=== PATIENT | female | born 1995 | race African-American/Black ===

== ENCOUNTER 2017-02-18 16:25 | Emergency (ER) | payer OTHER ==
[~2017-02-18] VITALS: Ht 167.6 cm; Wt 59.4 kg
[~2017-02-18 16:25] MED LIST: IBUPROFEN 800800 M1 PO
[2017-02-18] MEDS ORDERED: PERCOCET 10-321 EACH PO (16:30)
== END 2017-02-18 17:37 | disposition home or self-care (01) ==
LOC: ER 16:25
DX: G89.4 Chronic pain syndrome (principal); E87.1 Hypo-osmolality and hyponatremia; Z88.6 Allergy status to analgesic agent

== ENCOUNTER 2019-02-15 10:24 | Emergency (ER) | payer OTHER ==
[~2019-02-15] VITALS: Ht 160 cm; Wt 60.3 kg
[~2019-02-15 10:24] MED LIST changes: +PERCOCET 10-321 EACH PO
[2019-02-15 13:07] LABS: HEMATOCRIT 24.5 % (37.0-47.0); HEMOGLOBIN 8.4 gm/dL (12.0-15.0); MCH 29.5 pg (26.0-34.0); MCHC 34.2 g/dL (28.0-37.0); MCV 86.4 fL (80.0-100.0); RBC 2.84 mil/uL (4.20-5.00); RDW 17.8 % (10.5-14.5); WBC 12.7 thou/uL (4.0-11.0)
[2019-02-15 13:09] LABS: ABSOLUTE RETIC COUNT 0.1936 10^6/uL; OBSERVED RETIC COUNT 6.81 % (0.6-2.6)
[2019-02-15 13:15] LABS: CALCIUM 8.8 mg/dL (8.5-10.1); CREATININE 0.5 mg/dL (0.6-1.0); POTASSIUM 3.7 mmol/L (3.5-5.1)
[2019-02-15] MEDS ORDERED: TAMIFLU75 MG PO ×3 (15:37→16:29)
[2019-02-15 16:35] VITALS: BP 109/55
[2019-02-16] MEDS ORDERED: SIKLOS100 MG PO (16:02)
[2019-02-16] MEDS ORDERED: FOLIC ACID1 MG PO (16:03)
[2019-02-16] MEDS ORDERED: PERCOCET 5-3251 EACH PO (22:30)
[2019-02-16] MEDS ORDERED: PERCOCET 10-321 EAC1 PO (23:07)
== END 2019-02-15 16:35 | disposition home or self-care (01) ==
LOC: ER 10:24
PROVIDERS: Emergency Medicine
DX: D57.00 Hb-SS disease with crisis, unspecified (principal); J10.1 Influenza due to other identified influenza virus with other respiratory manifestations; Z88.6 Allergy status to analgesic agent

== ENCOUNTER 2019-02-16 15:58 | Emergency (ER) | payer OTHER ==
[~2019-02-16] VITALS: Ht 160 cm; Wt 60.3 kg
[~2019-02-16 15:58] MED LIST changes: +TAMIFLU75 MG PO
[2019-02-16] MEDS ORDERED: SIKLOS100 MG PO (16:02)
[2019-02-16] MEDS ORDERED: FOLIC ACID1 MG PO (16:03)
[2019-02-16] MEDS ORDERED: PERCOCET 5-3251 EACH PO (22:30)
[2019-02-16 23:00] VITALS: BP 117/77
[2019-02-16] MEDS ORDERED: PERCOCET 10-321 EAC1 PO (23:07)
== END 2019-02-16 22:55 | disposition home or self-care (01) ==
LOC: ER 15:58
DX: D57.00 Hb-SS disease with crisis, unspecified (principal); J10.1 Influenza due to other identified influenza virus with other respiratory manifestations; Z88.6 Allergy status to analgesic agent

== ENCOUNTER 2019-02-18 19:58 | Inpatient (IN) | payer OTHER ==
[~2019-02-18] VITALS: Ht 160 cm; Wt 59.0 kg
[~2019-02-18 19:58] MED LIST changes: +FOLIC ACID1 MG PO; +PERCOCET 10-321 EAC1 PO; +PERCOCET 5-3251 EACH PO; +SIKLOS100 MG PO
[2019-02-18 20:00] VITALS: BP 129/83
[2019-02-18 21:40] LABS: HEMATOCRIT 21.1 % (37.0-47.0); HEMOGLOBIN 7.7 gm/dL (12.0-15.0); MCH 29.4 pg (26.0-34.0); MCHC 36.5 g/dL (28.0-37.0); MCV 80.5 fL (80.0-100.0); PLATELET COUNT 356 thou/uL (150-400); RBC 2.62 mil/uL (4.20-5.00)
[2019-02-18 21:41] LABS: ABSOLUTE RETIC COUNT 0.1752 10^6/uL; OBSERVED RETIC COUNT 6.68 % (0.6-2.6)
[2019-02-18 21:45] LABS: CALCIUM 9.1 mg/dL (8.5-10.1); CREATININE 0.7 mg/dL (0.6-1.0); POTASSIUM 3.5 mmol/L (3.5-5.1)
[2019-02-18 21:51] LABS: ALBUMIN 4.1 g/dL (3.4-5.0); TOTAL BILIRUBIN 4.4 mg/dL (<0.1-1.0); TOTAL PROTEIN 7.5 g/dL (6.4-8.2)
[2019-02-18 22:36] LABS: HCO3 26.9 mmol/L (22.0-26.0); PCO2 43.8 mmHg (35.0-45.0); PO2 138.8 mmHg (80.0-100.0); pH 7.406 (7.360-7.450); sO2 98.8 % (92.0-98.0)
[2019-02-18 22:45] LABS: ABSOLUTE NEUTROPHILS 3.2 thou/uL (1.4-8.2); NUCLEATED RBCS 6 /100WBC
[2019-02-18 22:46] LABS: ANISOCYTOSIS 2+; PLATELET ESTIMATE NORMAL; POIKILOCYTOSIS 2+; POLYCHROMASIA 1+; SCHISTOCYTES 1+; TARGET CELLS 1+
[2019-02-18 23:47] VITALS: BP 112/73
[2019-02-18 23:56] VITALS: BP 111/65
[2019-02-19 00:27] VITALS: BP 1128/65
[2019-02-19 03:24] VITALS: BP 129/78
[2019-02-19 08:20] VITALS: BP 112/49
--- NOTE | 2019-02-19 08:34 | EKG ---
[address] [email or web address] [address] ELECTROCARDIOGRAM REPORT Name: RULA TAVAREZ Room #: 206-P ADM IN M.R.#: [id number] Admission: 02/18/19 Attend Phys: Shaquille Ray MD Discharge: Date of : [birth year] Report #: [id number] THIS REPORT FOR: //name// [facility] ED Test Date: 2019-02-18 Test Time: 20:10:23 Pat Name: RULA TAVAREZ Department: Room: [facility] Gender: F Kit Planner: INDRA : 1995 Requested By: Ashlee Serrano Order Number: [id number] MD: Clarence Hernandez Measurements Intervals [place] Rate: 99 P: 81 [place]: 191 QRS: 33 QRSD: 80 T: 67 QT: 330 QTc: 424 Interpretive Statements Sinus rhythm LVH by voltage No previous ECG available for comparison Electronically Signed On 02-19-2019 8:34:27 TRANSIT PLANNING MANAGER by Clarence Hernandez [email or web address] <ELECTRONICALLY SIGNED> By: Clarence Hernandez MD, [facility] 02/19/19 0834 09 09 Clarence Hernandez MD, FACC /EPI
--- NOTE | 2019-02-19 11:09 | NUR ---
ASSUMED CARE AT 0700, SHIFT ASSESMENT DONE, MEDS GIVEN, VSS. DENIES NAUSEA, VOMITING. NSR ON TELE, ON 3L NC. REPORTED GENERALIZED PAIN, PRN PAIN MEDS GIVEN. ON DROPLET PRECAUTIONS, WILL CONTINUE TO ASSESS AND ASSIST WITH ADLs NEEDED.
[2019-02-19 14:08] VITALS: BP 120/60
--- NOTE | 2019-02-19 15:55 | NUR ---
PT ARRIVED TO UNIT TRANSFERRED FROM BY UNIT STAFF. REMAINS ON 3LNC. REPORTS PAIN PARTIALLY MANAGED WITH MEDS ORDERED. PT UP AD IMELDA WITH STEADY BALANCED GAIT. ISOLATION PRECAUTIONS MAINTAINED.
[2019-02-19 16:10] VITALS: BP 139/63
[2019-02-19 19:15] VITALS: BP 112/74
--- NOTE | 2019-02-20 06:00 | NUR ---
Assumed pt care @191. pt a&ox4. adlib room. pain has been constant all night at an 8/10 with current pain management regimen. pt showered last night. droplet prec in place. pt on 3L nc and that that baseline prn. no s/s of acute distress. will cont to monitor
[2019-02-20 07:30] VITALS: BP 109/63
--- NOTE | 2019-02-20 12:33 | NUR ---
Chart reviewed and case discussed with the care team. Pt up ad eleanor in her room. She has been struggling this am with coordinating transport for her child after school. She relies on her mother most of the time. She [place] medicaid in place for f/u care and scripts. She [facility], Dr. Molina for her pcp. She is being treated for flu and sickle cell crisis. No cm needs identified at this time. Will follow along should dc needs arise. Possible dc home tomorrow.
[2019-02-20 15:45] VITALS: BP 116/71
--- NOTE | 2019-02-20 19:45 | NUR ---
Assumed patient care at 0715. Vital signs have been stable. Patient vomited x's 2 during day shift. Patient continues on Droplet Precautions for "Flu." she continues on O2 at 3Liters per nasal cannula prn. Patient refused her Miralax this am, stating "I don't need it." IV in left AC infiltrated. New IV placed in right forearm. NS running at 125mLs per hour. Patient has requested and received Zofran and Hydromorphone IV for generalized pain and nausea. She reports minimal response to Hydromorphone but, complete relief from the Zofran. Report given to on-coming RN.
--- NOTE | 2019-02-20 22:15 | NUR ---
ASSUMED CARE AROUND 191. ISO FOR FLU, AXOX4. CALLS APPROPRIATELY. NO S/S ACUTE DISTRESS NOTED OR REPORTED AT THIS TIME. CARE TRANSFERRED TO INCOMING RN AT THIS TIME.
[2019-02-21 07:50] VITALS: BP 122/67
[2019-02-21 12:02] VITALS: BP 104/60
[2019-02-21 13:08] VITALS: BP 104/60
--- NOTE | 2019-02-21 13:18 | NUR ---
Pt dcing home today. She confirms that she has home o2/portable system in place for when she needs it. Pt up ad leeanor. Pt encouraged to call her clinic to setup a f/u appt.
[2019-02-21 16:30] VITALS: BP 112/79
--- NOTE | 2019-02-21 18:26 | NUR ---
Assumed patient care at 0715. Vital signs have been stable. She vomited x's 1 this am. Patient continues on Oxygen at 3 Liters per nasal cannula. Patient continues to rate her Sickle Cell pain at a "level eight." Dr Armenta wrote Discharge Orders early this afternoon. Patient did not want to go home. Patient did verbalize an understanding to all Discharge Orders and signed paperwork. Patient didn't leave the unit until 1730. She left with all of her belongings.
== END 2019-02-21 17:30 | disposition home or self-care (01) | DRG 811 ==
LOC: ER 19:58 → 2N 23:24 → EROBS 23:24 → 2N 02-19 00:09 → 4W 02-19 13:45 → ENTRNSPT 02-21 17:29 → 4W 02-21 17:30
PROVIDERS: Physician Assistant; ADMIT Hospitalist
DX: D57.00 Hb-SS disease with crisis, unspecified (principal); J96.21 Acute and chronic respiratory failure with hypoxia; J11.1 Influenza due to unidentified influenza virus with other respiratory manifestations; Z88.6 Allergy status to analgesic agent; G89.29 Other chronic pain; Z79.899 Other long term (current) drug therapy
CPT/HCPCS: 10047

== ENCOUNTER 2019-03-06 09:49 | Emergency (ER) | payer OTHER ==
[~2019-03-06] VITALS: Ht 160 cm; Wt 58.1 kg
[2019-03-06 10:45] LABS: ABSOLUTE RETIC COUNT 0.179 10^6/uL; HEMATOCRIT 25.2 % (37.0-47.0); MCH 31.1 pg (26.0-34.0); MCHC 35.5 g/dL (28.0-37.0); MCV 87.6 fL (80.0-100.0); OBSERVED RETIC COUNT 6.21 % (0.6-2.6); PLATELET COUNT 752 thou/uL (150-400); RBC 2.88 mil/uL (4.20-5.00); WBC 5.5 thou/uL (4.0-11.0)
[2019-03-06 11:19] LABS: ABSOLUTE NEUTROPHILS 1.6 thou/uL (1.4-8.2); NUCLEATED RBCS 7 /100WBC
[2019-03-06 11:20] LABS: ANISOCYTOSIS 2+; ATYPICAL LYMPHS 1 %
[2019-03-06 11:21] LABS: TARGET CELLS FEW
[2019-03-06 16:48] VITALS: BP 117/67
== END 2019-03-06 16:49 | disposition home or self-care (01) ==
LOC: ER 09:49
PROVIDERS: Emergency Medicine
DX: D57.00 Hb-SS disease with crisis, unspecified (principal); Z88.6 Allergy status to analgesic agent

== ENCOUNTER 2019-03-13 18:24 | Emergency (ER) | payer OTHER ==
[~2019-03-13] VITALS: Ht 160 cm; Wt 58.5 kg
[2019-03-13] MEDS ORDERED: PERCOCET 10-321 EAC1 PO (21:10)
[2019-03-14] MEDS ORDERED: PERCOCET 10-321 EAC1 PO (01:16)
[2019-03-14 01:24] VITALS: BP 124/72
== END 2019-03-14 01:25 | disposition home or self-care (01) ==
LOC: ER 18:24
DX: D57.1 Sickle-cell disease without crisis (principal)

== ENCOUNTER 2019-03-25 02:25 | Emergency (ER) | payer OTHER ==
[~2019-03-25] VITALS: Ht 160 cm; Wt 59.9 kg
[2019-03-25] MEDS ORDERED: PERCOCET 10-321 EACH PO (02:58)
[2019-03-25 03:20] VITALS: BP 128/73
== END 2019-03-25 03:12 | disposition home or self-care (01) ==
LOC: ER 02:25
DX: D57.1 Sickle-cell disease without crisis (principal); G89.29 Other chronic pain

== ENCOUNTER 2019-04-09 01:57 | Emergency (ER) | payer OTHER ==
[~2019-04-09] VITALS: Ht 160 cm; Wt 60.3 kg
[2019-04-09 04:51] VITALS: BP 112/53
== END 2019-04-09 06:12 | disposition home or self-care (01) ==
LOC: ER 01:57
DX: D57.1 Sickle-cell disease without crisis (principal); Z91.09 Other allergy status, other than to drugs and biological substances

== ENCOUNTER 2019-04-11 00:09 | Emergency (ER) | payer OTHER ==
[~2019-04-11] VITALS: Ht 160 cm; Wt 60.3 kg
[2019-04-11 03:53] VITALS: BP 120/88
[2019-04-11] MEDS ORDERED: PERCOCET 10-321 EACH PO (04:04)
== END 2019-04-11 03:57 | disposition home or self-care (01) ==
LOC: ER 00:09
DX: D57.00 Hb-SS disease with crisis, unspecified (principal); R06.02 Shortness of breath; Z79.899 Other long term (current) drug therapy; Z88.6 Allergy status to analgesic agent

== ENCOUNTER 2019-04-15 01:27 | Emergency (ER) | payer OTHER ==
[~2019-04-15] VITALS: Ht 160 cm; Wt 60.3 kg
[2019-04-15 02:32] LABS: HEMATOCRIT 22.7 % (37.0-47.0); HEMOGLOBIN 8.3 gm/dL (12.0-15.0); MCH 31.4 pg (26.0-34.0); MCHC 36.4 g/dL (28.0-37.0); MCV 86.2 fL (80.0-100.0); PLATELET COUNT 493 thou/uL (150-400); RBC 2.64 mil/uL (4.20-5.00); RDW 24.1 % (10.5-14.5); WBC 7.3 thou/uL (4.0-11.0)
[2019-04-15 02:34] LABS: CALCIUM 9.1 mg/dL (8.5-10.1); CREATININE 0.4 mg/dL (0.6-1.0); POTASSIUM 5.1 mmol/L (3.5-5.1)
[2019-04-15 02:37] LABS: ABSOLUTE RETIC COUNT 0.3144 10^6/uL; OBSERVED RETIC COUNT 11.58 % (0.6-2.6)
[2019-04-15] MEDS ORDERED: KEFLEX500 M1 PO (03:08)
[2019-04-15 03:15] LABS: ABSOLUTE NEUTROPHILS 2.9 thou/uL (1.4-8.2); ATYPICAL LYMPHS 1 %; CORRECTED WBC 6.5 thou/uL (4.0-11.0); NUCLEATED RBCS 13 /100WBC
[2019-04-15 03:16] VITALS: BP 117/67
[2019-04-15 03:16] LABS: ANISOCYTOSIS 4+; POLYCHROMASIA 2+
[2019-04-15 03:17] LABS: LARGE PLATELETS SEVERAL
== END 2019-04-15 03:30 | disposition home or self-care (01) ==
LOC: ER 01:27
PROVIDERS: Emergency Medicine
DX: M79.662 Pain in left lower leg (principal); M25.552 Pain in left hip; Z79.899 Other long term (current) drug therapy; X58.XXXA Exposure to other specified factors, initial encounter; Y93.01 Activity, walking, marching and hiking; Y92.89 Other specified places as the place of occurrence of the external cause; Y99.8 Other external cause status

== ENCOUNTER 2019-04-17 00:41 | Emergency (ER) | payer OTHER ==
[~2019-04-17] VITALS: Ht 160 cm; Wt 60.3 kg
[~2019-04-17 00:41] MED LIST changes: +KEFLEX500 M1 PO
[2019-04-17 02:46] VITALS: BP 108/64
--- NOTE | 2019-04-18 12:45 | EKG ---
[facility] [place] [address] ELECTROCARDIOGRAM REPORT Name: RULA TAVAREZ Room #: DEP [facility]#: [id number] Admission: 04/17/19 Attend Phys: Discharge: 04/17/19 Date of : [birth year] Report #: [id number] THIS REPORT FOR: cc: NO FAMILY PHYSICIAN or PCP NO FAMILY PHYSICIAN or PCP Kt Hernandez MD ~ THIS REPORT FOR: //name// [facility] ED Test Date: 2019-04-17 Test Time: 00:54:28 Pat Name: RULA TAVAREZ Department: Room: Gender: Mold Holder: : 1995 Requested By: Order Number: [id number] MD: Kt Hernandez Measurements Intervals [place] Rate: 88 P: 51 GA: 185 QRS: 25 QRSD: 81 T: 18 QT: 355 QTc: 430 Interpretive Statements Sinus rhythm Nonspecific T abnormalities, anterior leads No previous ECGs available for comparison Electronically Signed On 04-18-2019 12:44:28 CDT by Kt Hernandez [email or web address] <ELECTRONICALLY SIGNED> By: Kt Hernandez MD 04/18/19 1244 Kt Hernandez MD /SHAREE
== END 2019-04-17 02:47 | disposition home or self-care (01) ==
LOC: ER 00:41
DX: D57.00 Hb-SS disease with crisis, unspecified (principal); R07.9 Chest pain, unspecified; R06.02 Shortness of breath

== ENCOUNTER 2019-04-25 09:54 | Emergency (ER) | payer OTHER ==
[~2019-04-25] VITALS: Ht 160 cm; Wt 58.5 kg
[2019-04-25 11:00] LABS: CALCIUM 9.3 mg/dL (8.5-10.1); CREATININE 0.5 mg/dL (0.6-1.0); POTASSIUM 3.6 mmol/L (3.5-5.1)
[2019-04-25] MEDS ORDERED: DROXIA200 MG PO (11:00)
[2019-04-25] MEDS ORDERED: FOLIC ACID0.8 M1 PO (11:01)
[2019-04-25 11:06] LABS: ALBUMIN 4.4 g/dL (3.4-5.0); TOTAL BILIRUBIN 3.1 mg/dL (<0.1-1.0); TOTAL PROTEIN 7.9 g/dL (6.4-8.2)
[2019-04-25 11:16] LABS: ABSOLUTE RETIC COUNT 0.2588 10^6/uL; BASOPHILS 1.9 % (0.0-2.0); EOSINOPHILS 4.6 % (0.0-3.0); HEMATOCRIT 27.8 % (37.0-47.0); HEMOGLOBIN 9.7 gm/dL (12.0-15.0); LYMPHOCYTES 46.4 % (24.0-44.0); MCH 31.1 pg (26.0-34.0); MCHC 34.9 g/dL (28.0-37.0); MCV 88.9 fL (80.0-100.0); MONOCYTES 11.6 % (1.0-8.0); OBSERVED RETIC COUNT 8.29 % (0.6-2.6); PLATELET COUNT 646 thou/uL (150-400); POLYS 35.5 % (36.0-66.0); RBC 3.12 mil/uL (4.20-5.00); RDW 20.8 % (10.5-14.5); WBC 8.4 thou/uL (4.0-11.0)
[2019-04-25 11:42] LABS: ANISOCYTOSIS 2+
[2019-04-25 11:44] LABS: POLYCHROMASIA SLIGHT
[2019-04-25] MEDS ORDERED: NORCO 5-325 TA1 EAC1 PO (12:42)
[2019-04-25 13:21] VITALS: BP 116/68
--- NOTE | 2019-04-26 08:14 | EKG ---
[facility] [place] [address] ELECTROCARDIOGRAM REPORT Name: RULA TAVAREZ Room #: DEP [facility]#: [id number] Admission: 04/25/19 Attend Phys: Discharge: 04/25/19 Date of : [birth year] Report #: [id number] THIS REPORT FOR: cc: FAM - Family physician unknown FAM - Family physician unknown Clarence Hernandez MD [facility] ~ THIS REPORT FOR: //name// [facility] ED Test Date: 2019-04-25 Test Time: 10:40:28 Pat Name: RULA TAVAREZ Department: Room: Gender: F Sephora Operations Consultant: celia : 1995 Requested By: Aris Santana Order Number: [id number] MD: Clarence Hernandez Measurements Intervals [place] Rate: 82 P: 52 VA: 186 QRS: 16 QRSD: 81 T: 28 QT: 366 QTc: 428 Interpretive Statements Sinus rhythm Borderline T abnormalities, anterior leads Compared to ECG 04/17/2019 00:54:28 No significant changes Electronically Signed On 04-26-2019 8:13:37 CDT by Clarence Hernandez [email or web address] <ELECTRONICALLY SIGNED> By: Clarence Hernandez MD, FACC 04/26/19 0813 1040 1040 Clarence Hernandez MD, [facility] /EPI
== END 2019-04-25 13:21 | disposition home or self-care (01) ==
LOC: ER 09:54
PROVIDERS: Emergency Medicine
DX: D57.00 Hb-SS disease with crisis, unspecified (principal); Z88.6 Allergy status to analgesic agent

== ENCOUNTER 2019-04-28 20:55 | Emergency (ER) | payer OTHER ==
[~2019-04-28] VITALS: Ht 160 cm; Wt 58.5 kg
[~2019-04-28 20:55] MED LIST changes: +DROXIA200 MG PO; +FOLIC ACID0.8 M1 PO; +NORCO 5-325 TA1 EAC1 PO
[2019-04-28 21:58] LABS: ABSOLUTE RETIC COUNT 0.2214 10^6/uL; HEMATOCRIT 25.5 % (37.0-47.0); HEMOGLOBIN 9.3 gm/dL (12.0-15.0); MCH 32.1 pg (26.0-34.0); MCHC 36.4 g/dL (28.0-37.0); MCV 88.1 fL (80.0-100.0); OBSERVED RETIC COUNT 7.64 % (0.6-2.6); PLATELET COUNT 619 thou/uL (150-400); RDW 20.7 % (10.5-14.5); WBC 9.3 thou/uL (4.0-11.0)
[2019-04-28 22:06] LABS: CALCIUM 9.6 mg/dL (8.5-10.1); CREATININE 0.5 mg/dL (0.6-1.0)
[2019-04-28 22:14] LABS: ALBUMIN 4.3 g/dL (3.4-5.0); TOTAL BILIRUBIN 3.2 mg/dL (<0.1-1.0); TOTAL PROTEIN 7.4 g/dL (6.4-8.2)
[2019-04-28 22:26] LABS: ABSOLUTE NEUTROPHILS 5.1 thou/uL (1.4-8.2); ANISOCYTOSIS 3+; LARGE PLATELETS OCCASIONAL
[2019-04-28 22:27] LABS: HYPOCHROMASIA 2+; POLYCHROMASIA OCCASIONAL; TARGET CELLS OCCASIONAL
[2019-04-28 23:20] VITALS: BP 112/73
[2019-04-28] MEDS ORDERED: PERCOCET 10-321 EAC1 PO (23:56)
== END 2019-04-29 00:20 | disposition home or self-care (01) ==
LOC: ER 20:55
PROVIDERS: Emergency Medicine
DX: D57.00 Hb-SS disease with crisis, unspecified (principal); M25.511 Pain in right shoulder; R07.9 Chest pain, unspecified; M54.5 Low back pain; Z88.6 Allergy status to analgesic agent

== ENCOUNTER 2019-05-04 19:14 | Emergency (ER) | payer OTHER ==
[~2019-05-04] VITALS: Ht 160 cm; Wt 58.5 kg
[2019-05-04 21:20] VITALS: BP 130/86
== END 2019-05-04 21:21 | disposition home or self-care (01) ==
LOC: ER 19:14
DX: D57.00 Hb-SS disease with crisis, unspecified (principal); G89.29 Other chronic pain; Z88.6 Allergy status to analgesic agent

== ENCOUNTER 2019-05-12 19:04 | Emergency (ER) | payer OTHER ==
[~2019-05-12] VITALS: Ht 160 cm; Wt 58.5 kg
[2019-05-12] MEDS ORDERED: ZOFRAN ODT4 MG PO (20:14)
[2019-05-12 20:31] VITALS: BP 116/70
== END 2019-05-12 20:33 | disposition home or self-care (01) ==
LOC: ER 19:04
DX: R11.2 Nausea with vomiting, unspecified (principal); M25.562 Pain in left knee; M25.572 Pain in left ankle and joints of left foot; Z79.899 Other long term (current) drug therapy

== ENCOUNTER 2019-05-27 21:17 | Emergency (ER) | payer OTHER ==
[~2019-05-27] VITALS: Ht 160 cm; Wt 60.3 kg
[~2019-05-27 21:17] MED LIST changes: +ZOFRAN ODT4 MG PO
[2019-05-27] MEDS ORDERED: PERCOCET 10-321 EAC1 PO (21:23)
[2019-05-27 22:18] LABS: ABSOLUTE RETIC COUNT 0.1759 10^6/uL; OBSERVED RETIC COUNT 5.96 % (0.6-2.6)
[2019-05-27 22:21] LABS: HEMATOCRIT 26.3 % (37.0-47.0); HEMOGLOBIN 9.4 gm/dL (12.0-15.0); MCH 31.5 pg (26.0-34.0); MCHC 35.9 g/dL (28.0-37.0); MCV 87.9 fL (80.0-100.0); PLATELET COUNT 568 thou/uL (150-400); RBC 2.99 mil/uL (4.20-5.00); RDW 18.8 % (10.5-14.5); WBC 7.6 thou/uL (4.0-11.0)
[2019-05-27 22:28] LABS: CALCIUM 8.8 mg/dL (8.5-10.1); CREATININE 0.6 mg/dL (0.6-1.0); POTASSIUM 3.6 mmol/L (3.5-5.1)
[2019-05-27 22:32] LABS: ALBUMIN 4.3 g/dL (3.4-5.0); TOTAL BILIRUBIN 3.6 mg/dL (<0.1-1.0); TOTAL PROTEIN 7.4 g/dL (6.4-8.2)
[2019-05-27 22:44] LABS: ABSOLUTE NEUTROPHILS 2.6 thou/uL (1.4-8.2)
[2019-05-27 22:45] LABS: LARGE PLATELETS OCCASIONAL
[2019-05-27 22:46] VITALS: BP 119/77
[2019-05-27 22:46] LABS: ANISOCYTOSIS 2+; POLYCHROMASIA OCCASIONAL; TARGET CELLS FEW
[2019-05-27] MEDS ORDERED: PERCOCET 5-3251 EACH PO (22:51)
== END 2019-05-27 23:02 | disposition home or self-care (01) ==
LOC: ER 21:17
PROVIDERS: Emergency Medicine
DX: D57.1 Sickle-cell disease without crisis (principal); M25.511 Pain in right shoulder; M25.551 Pain in right hip; M25.552 Pain in left hip; Z79.899 Other long term (current) drug therapy; Z88.6 Allergy status to analgesic agent

== ENCOUNTER 2019-06-10 23:02 | Emergency (ER) | payer OTHER ==
[~2019-06-10] VITALS: Ht 160 cm; Wt 59.0 kg
[2019-06-10 23:59] LABS: HEMOGLOBIN 10.1 gm/dL (12.0-15.0); MCHC 36.1 g/dL (28.0-37.0); WBC 6.1 thou/uL (4.0-11.0)
[2019-06-11 00:01] LABS: HEMATOCRIT 27.9 % (37.0-47.0); MCH 31.8 pg (26.0-34.0); MCV 88.1 fL (80.0-100.0); PLATELET COUNT 532 thou/uL (150-400); RBC 3.16 mil/uL (4.20-5.00); RDW 18.3 % (10.5-14.5)
[2019-06-11 00:03] LABS: CALCIUM 9.2 mg/dL (8.5-10.1); CREATININE 0.7 mg/dL (0.6-1.0); POTASSIUM 3.5 mmol/L (3.5-5.1)
[2019-06-11 00:09] LABS: ALBUMIN 5.1 g/dL (3.4-5.0); TOTAL BILIRUBIN 4.4 mg/dL (<0.1-1.0); TOTAL PROTEIN 8.1 g/dL (6.4-8.2)
[2019-06-11 01:10] LABS: ANISOCYTOSIS 2+; NUCLEATED RBCS 1 /100WBC; POIKILOCYTOSIS 2+
[2019-06-11 01:11] LABS: BURR CELLS 1+; LARGE PLATELETS FEW; PLATELET ESTIMATE INCREASED; SCHISTOCYTES 1+
[2019-06-11 02:44] VITALS: BP 107/72
--- NOTE | 2019-06-11 12:56 | EKG ---
[facility] [place] [address] ELECTROCARDIOGRAM REPORT Name: RULA TAVAREZ Room #: DEP [facility]#: [id number] Admission: 06/10/19 Attend Phys: Discharge: 06/11/19 Date of : [birth year] Report #: [id number] THIS REPORT FOR: cc: FILI Lam family physician/PCP FILI - Carole family physician/PCP Clarence Hernandez MD [facility] THIS REPORT FOR: //name// [facility] ED Test Date: 2019-06-10 Test Time: 23:27:27 Pat Name: RULA TAVAREZ Department: Room: Gender: F Plastics Factory Worker: : 1995 Requested By: Aris Caban Order Number: [id number] MD: Clarence Hernandez Measurements Intervals [place] Rate: 83 P: 47 DC: 190 QRS: 29 QRSD: 85 T: 43 QT: 375 QTc: 441 Interpretive Statements Sinus rhythm Early R wave progression Compared to ECG 04/25/2019 10:40:28 No significant change was found Electronically Signed On 06-11-2019 12:54:47 CDT by Clarence Hernandez [email or web address] <ELECTRONICALLY SIGNED> By: Clarence Hernandez MD, [facility] 06/11/19 1254 2327 2327 Clarence Hernandez MD, [facility] /EPI
[2019-06-12] MEDS ORDERED: PERCOCET 10-321 EACH PO (05:12)
== END 2019-06-11 02:44 | disposition home or self-care (01) ==
LOC: ER 23:02
PROVIDERS: Emergency Medicine
DX: R07.9 Chest pain, unspecified (principal); M54.9 Dorsalgia, unspecified; D57.00 Hb-SS disease with crisis, unspecified; Z79.899 Other long term (current) drug therapy; Z88.6 Allergy status to analgesic agent

== ENCOUNTER 2019-06-12 03:56 | Emergency (ER) | payer OTHER ==
[~2019-06-12] VITALS: Ht 160 cm; Wt 59.0 kg
[2019-06-12 05:11] VITALS: BP 113/57
[2019-06-12] MEDS ORDERED: PERCOCET 10-321 EACH PO (05:12)
== END 2019-06-12 05:27 | disposition home or self-care (01) ==
LOC: ER 03:56
DX: D57.00 Hb-SS disease with crisis, unspecified (principal); R07.89 Other chest pain; Z88.5 Allergy status to narcotic agent; Z88.6 Allergy status to analgesic agent

== ENCOUNTER 2019-06-16 08:06 | Emergency (ER) | payer OTHER ==
[~2019-06-16] VITALS: Ht 157.5 cm; Wt 49.0 kg
[2019-06-16 09:19] LABS: HEMATOCRIT 23.5 % (37.0-47.0); HEMOGLOBIN 8.5 gm/dL (12.0-15.0); MCH 31.7 pg (26.0-34.0); MCV 88.1 fL (80.0-100.0); PLATELET COUNT 534 thou/uL (150-400); RBC 2.66 mil/uL (4.20-5.00); RDW 16.7 % (10.5-14.5); WBC 5.2 thou/uL (4.0-11.0)
[2019-06-16 09:31] LABS: ANION GAP 9 mmol/L (7-16); BUN 5 mg/dL (7-18); CHLORIDE 104 mmol/L (98-107); CO2 26 mmol/L (21-32); CREATININE 0.5 mg/dL (0.6-1.0); GLUCOSE 126 mg/dL (74-106); POTASSIUM 3.6 mmol/L (3.5-5.1); SODIUM 139 mmol/L (136-145)
[2019-06-16 09:40] LABS: TROPONIN-I <0.06 ng/mL (<0.06)
[2019-06-16 09:50] LABS: ABSOLUTE RETIC COUNT 0.1507 10^6/uL; OBSERVED RETIC COUNT 5.51 % (0.6-2.6)
--- NOTE | 2019-06-16 10:27 | EKG ---
[facility] [place] [address] ELECTROCARDIOGRAM REPORT Name: RULA TAVAREZ Room #: REG [facility]#: [id number] Admission: 06/16/19 Attend Phys: Discharge: Date of : [birth year] Report #: [id number] THIS REPORT FOR: cc: PA MAE TRAILER SECTIONS ASSEMBLER Physician not on staff Clarence Hernandez MD [facility] THIS REPORT FOR: //name// [facility] ED Test Date: 2019-06-16 Test Time: 08:21:12 Pat Name: RULA TAVAREZ Department: Room: Gender: F Pedicab Driver: : 1995 Requested By: My Lyle Order Number: [id number] MD: Clarence Hernandez Measurements Intervals [place] Rate: 92 P: 56 MD: 186 QRS: 26 QRSD: 87 T: 31 QT: 363 QTc: 450 Interpretive Statements Sinus rhythm Borderline T wave abnormalities Early R wave progression Compared to ECG 06/10/2019 23:27:27 No significant change was found Electronically Signed On 06-16-2019 10:25:37 CDT by Clarence Hernandez [email or web address] <ELECTRONICALLY SIGNED> By: Clarence Hernandez MD, [facility] 06/16/19 1025 0 0 Clarence Hernandez MD, [facility] /EPI
[2019-06-16] MEDS ORDERED: PERCOCET 5-3251 EACH PO (11:18)
[2019-06-16 11:28] LABS: ABSOLUTE NEUTROPHILS 2.5 thou/uL (1.4-8.2)
[2019-06-16 11:34] LABS: ANISOCYTOSIS 1+; POLYCHROMASIA OCCASIONAL
[2019-06-16 11:56] VITALS: BP 107/62
== END 2019-06-16 11:57 | disposition home or self-care (01) ==
LOC: ER 08:06
PROVIDERS: Emergency Medicine Emergency Medical Services
DX: D57.00 Hb-SS disease with crisis, unspecified (principal); R07.9 Chest pain, unspecified; R07.81 Pleurodynia; M25.551 Pain in right hip; Z79.899 Other long term (current) drug therapy; Z88.6 Allergy status to analgesic agent; Z88.5 Allergy status to narcotic agent

== ENCOUNTER 2019-06-20 06:51 | Emergency (ER) | payer OTHER ==
[~2019-06-20] VITALS: Ht 160 cm; Wt 59.0 kg
[2019-06-20] MEDS ORDERED: PERCOCET 5-3251 EACH PO (07:30)
[2019-06-20 08:32] LABS: URINE BILIRUBIN NEGATIVE (Negative); URINE BLOOD NEGATIVE (Negative); URINE CLARITY CLEAR; URINE COLOR YELLOW; URINE GLUCOSE-RANDOM* NEGATIVE (Negative); URINE KETONES 1+ (Negative); URINE LEUKOCYTES-REFLEX NEGATIVE (Negative); URINE NITRITE-REFLEX NEGATIVE (Negative); URINE PROTEIN (DIPSTICK) TRACE (Negative); URINE SPECIFIC GRAVITY 1.015 (1.005-1.035)
[2019-06-20 10:35] VITALS: BP 121/72
== END 2019-06-20 10:35 | disposition home or self-care (01) ==
LOC: ER 06:51
PROVIDERS: Emergency Medicine
DX: D57.00 Hb-SS disease with crisis, unspecified (principal); M54.9 Dorsalgia, unspecified; R07.81 Pleurodynia; M25.562 Pain in left knee; Z79.899 Other long term (current) drug therapy; Z88.6 Allergy status to analgesic agent

== ENCOUNTER 2019-06-23 18:15 | Emergency (ER) | payer OTHER ==
[~2019-06-23] VITALS: Ht 160 cm; Wt 59.0 kg
[2019-06-23 20:01] LABS: ABSOLUTE NEUTROPHILS 4.5 thou/uL (1.4-8.2); EOSINOPHILS 2.3 % (0.0-3.0); HEMATOCRIT 24.3 % (37.0-47.0); HEMOGLOBIN 8.9 gm/dL (12.0-15.0); LYMPHOCYTES 32.2 % (24.0-44.0); MCH 32.2 pg (26.0-34.0); MCHC 36.6 g/dL (28.0-37.0); MCV 88.1 fL (80.0-100.0); MONOCYTES 8.7 % (1.0-8.0); PLATELET COUNT 605 thou/uL (150-400); POLYS 55.8 % (36.0-66.0); RBC 2.75 mil/uL (4.20-5.00); RDW 18.1 % (10.5-14.5); WBC 8.1 thou/uL (4.0-11.0)
[2019-06-23 20:15] LABS: ANION GAP 13 mmol/L (7-16); BUN 5 mg/dL (7-18); CALCIUM 9.4 mg/dL (8.5-10.1); CHLORIDE 103 mmol/L (98-107); CO2 23 mmol/L (21-32); CREATININE 0.6 mg/dL (0.6-1.0); GLUCOSE 91 mg/dL (74-106); POTASSIUM 3.8 mmol/L (3.5-5.1); SODIUM 139 mmol/L (136-145)
[2019-06-23 20:21] LABS: AMP/METHAMP Negative (Negative); BARBITURATES Negative (Negative); BENZODIAZEPINES Negative (Negative); COCAINE Negative (Negative); METHADONE Negative (Negative); OPIATES POSITIVE (Negative); PCP Negative (Negative)
[2019-06-23 20:26] LABS: ALBUMIN 4.6 g/dL (3.4-5.0); MAGNESIUM 1.9 mg/dL (1.8-2.4); SGOT 27 U/L (15-37); SGPT 17 U/L (30-65); TOTAL PROTEIN 7.9 g/dL (6.4-8.2); TROPONIN-I <0.06 ng/mL (<0.06)
[2019-06-23 20:42] LABS: ANISOCYTOSIS 2+
[2019-06-23 20:43] LABS: POLYCHROMASIA 2+
[2019-06-23 20:44] LABS: LARGE PLATELETS OCCASIONAL
[2019-06-23] MEDS ORDERED: PERCOCET 10-321 EACH PO ×2 (22:44→22:51)
[2019-06-23 22:56] VITALS: BP 118/62
--- NOTE | 2019-06-24 08:10 | EKG ---
[facility] [place] [address] ELECTROCARDIOGRAM REPORT Name: RULA TAVAREZ Room #: DEP [facility]#: [id number] Admission: 06/23/19 Attend Phys: Discharge: 06/23/19 Date of : [birth year] Report #: [id number] THIS REPORT FOR: cc: FAM - Family physician unknown FAM - Family physician unknown Clarence Hernandez MD [facility] THIS REPORT FOR: //name// [facility] ED Test Date: 2019-06-23 Test Time: 18:28:35 Pat Name: RULA TAVAREZ Department: Room: Gender: Monument Setter: [facility] : 1995 Requested By: Aleida Kaba Order Number: [id number] MD: Clarence Hernandez Measurements Intervals [place] Rate: 91 P: 73 PA: 184 QRS: 27 QRSD: 84 T: 23 QT: 350 QTc: 431 Interpretive Statements Sinus rhythm Nonspecific T wave abnormality Compared to ECG 06/16/2019 08:21:12 No significant change was found Electronically Signed On 06-24-2019 8:08:06 CDT by Clarence Hernandez [email or web address] <ELECTRONICALLY SIGNED> By: Clarence Hernandez MD, FACC 06/24/19 0808 1828 1828 Clarence Hernandez MD, [facility] /EPI
== END 2019-06-23 22:57 | disposition home or self-care (01) ==
LOC: ER 18:15
PROVIDERS: Emergency Medicine
DX: D57.00 Hb-SS disease with crisis, unspecified (principal); R07.89 Other chest pain; M25.552 Pain in left hip; R06.02 Shortness of breath; R25.1 Tremor, unspecified; R53.1 Weakness; Z88.6 Allergy status to analgesic agent; Z79.899 Other long term (current) drug therapy; Z88.5 Allergy status to narcotic agent

== ENCOUNTER 2019-07-01 01:11 | Emergency (ER) | payer OTHER ==
[~2019-07-01] VITALS: Ht 160 cm; Wt 59.0 kg
[2019-07-01 02:24] VITALS: BP 127/79
== END 2019-07-01 02:28 | disposition home or self-care (01) ==
LOC: ER 01:11
DX: S50.862A Insect bite (nonvenomous) of left forearm, initial encounter (principal); D57.1 Sickle-cell disease without crisis; Z88.6 Allergy status to analgesic agent; W57.XXXA Bitten or stung by nonvenomous insect and other nonvenomous arthropods, initial encounter; Y93.89 Activity, other specified; Y92.89 Other specified places as the place of occurrence of the external cause; Y99.8 Other external cause status

== ENCOUNTER 2019-07-06 18:28 | Emergency (ER) | payer OTHER ==
[~2019-07-06] VITALS: Ht 157.5 cm; Wt 61.2 kg
[2019-07-06 20:23] VITALS: BP 131/67
== END 2019-07-06 20:28 | disposition home or self-care (01) ==
LOC: ER 18:28
DX: D57.00 Hb-SS disease with crisis, unspecified (principal); M25.551 Pain in right hip; M25.562 Pain in left knee; R07.9 Chest pain, unspecified; Z79.899 Other long term (current) drug therapy; Z88.6 Allergy status to analgesic agent

== ENCOUNTER 2019-07-29 08:35 | Emergency (ER) | payer OTHER ==
[~2019-07-29] VITALS: Ht 160 cm; Wt 59.4 kg
[2019-07-29] MEDS ORDERED: ZOFRAN ODT4 MG PO (12:05)
[2019-07-29 12:14] VITALS: BP 109/73
== END 2019-07-29 12:18 | disposition home or self-care (01) ==
LOC: ER 08:35
DX: D57.1 Sickle-cell disease without crisis (principal); G89.29 Other chronic pain; M54.6 Pain in thoracic spine; R07.9 Chest pain, unspecified; R11.0 Nausea; R20.2 Paresthesia of skin; Z79.899 Other long term (current) drug therapy; Z88.6 Allergy status to analgesic agent; Z88.5 Allergy status to narcotic agent

== ENCOUNTER 2019-08-02 11:03 | Emergency (ER) | payer OTHER ==
[~2019-08-02] VITALS: Ht 160 cm; Wt 61.2 kg
--- NOTE | ~2019-08-02 | EKG ---
[facility] [place] [address] ELECTROCARDIOGRAM REPORT Name: RULA TAVAREZ Room #: REG [facility]#: [id number] Admission: 08/02/19 Attend Phys: Discharge: Date of : [birth year] Report #: [id number] THIS REPORT FOR: cc: FAM - Family physician unknown FAM - Family physician unknown Korey Nair MD ~ THIS REPORT FOR: //name// [facility] ED Test Date: 2019-08-02 Test Time: 11:04:56 Pat Name: RULA TAVAREZ Department: Patient ID: SJOMO- Room: Gender: F Electronic Console Display Operator: EVANS : 1995 Requested By: Farhana Jacobs Order Number: [id number] MD: Measurements Intervals [place] Rate: 91 P: 69 [place]: 193 QRS: 27 QRSD: 80 T: 37 QT: 343 QTc: 423 Interpretive Statements Sinus rhythm Nonspecific T abnormalities, anterior leads Baseline wander in lead(s) V5 No previous ECG available for comparison [email or web address] By: 1104 1104 Epiphany Epiphany, /EPI
[2019-08-02 12:02] LABS: ABSOLUTE RETIC COUNT 0.1924 10^6/uL; BASOPHILS 1.3 % (0.0-2.0); EOSINOPHILS 3.6 % (0.0-3.0); HEMATOCRIT 25.9 % (37.0-47.0); HEMOGLOBIN 9.5 gm/dL (12.0-15.0); MCH 32.4 pg (26.0-34.0); MCHC 36.6 g/dL (28.0-37.0); MCV 88.6 fL (80.0-100.0); MONOCYTES 9.2 % (1.0-8.0); OBSERVED RETIC COUNT 6.57 % (0.6-2.6); PLATELET COUNT 625 thou/uL (150-400); POLYS 44.9 % (36.0-66.0); RBC 2.93 mil/uL (4.20-5.00); RDW 17.9 % (10.5-14.5); WBC 6.7 thou/uL (4.0-11.0)
[2019-08-02 12:12] LABS: CALCIUM 9.1 mg/dL (8.5-10.1); CREATININE 0.4 mg/dL (0.6-1.0)
[2019-08-02 12:16] LABS: POTASSIUM 4.4 mmol/L (3.5-5.1)
[2019-08-02 12:18] LABS: ALBUMIN 4.2 g/dL (3.4-5.0); DIRECT BILIRUBIN 0.3 mg/dL (<0.1-0.2); TOTAL BILIRUBIN 4.1 mg/dL (0.2-1.0); TOTAL PROTEIN 7.2 g/dL (6.4-8.2)
[2019-08-02 13:43] LABS: URINE BILIRUBIN NEGATIVE (Negative); URINE BLOOD TRACE (Negative); URINE CLARITY CLEAR; URINE COLOR YELLOW; URINE GLUCOSE-RANDOM* NEGATIVE (Negative); URINE KETONES TRACE (Negative); URINE LEUKOCYTES-REFLEX NEGATIVE (Negative); URINE NITRITE-REFLEX NEGATIVE (Negative); URINE PROTEIN (DIPSTICK) NEGATIVE (Negative); URINE SPECIFIC GRAVITY 1.015 (1.005-1.035)
--- NOTE | 2019-08-02 14:08 | EKG ---
[facility] [place] [address] ELECTROCARDIOGRAM REPORT Name: RULA TAVAREZ Room #: REG [facility]#: [id number] Admission: 08/02/19 Attend Phys: Discharge: Date of : [birth year] Report #: [id number] THIS REPORT FOR: cc: FAM - Family physician unknown FAM - Family physician unknown Kt Hernandez MD ~ THIS REPORT FOR: //name// [facility] ED Test Date: 2019-08-02 Test Time: 11:04:56 Pat Name: RULA TAVAREZ Department: Room: Gender: Route Delivery Driver: [facility] : 1995 Requested By: Farhana Jacobs Order Number: [id number] MD: Kt Hernandez Measurements Intervals [place] Rate: 91 P: 69 CA: 193 QRS: 27 QRSD: 80 T: 37 QT: 343 QTc: 423 Interpretive Statements Sinus rhythm Nonspecific T abnormalities, anterior leads Baseline wander in lead(s) V5 Compared to ECG 06/23/2019 18:28:35 No significant changes Electronically Signed On 08-02-2019 14:07:28 CDT by Kt Hernandez [email or web address] <ELECTRONICALLY SIGNED> By: Kt Hernandez MD 08/02/19 1407 1104 1104 Kt Hernandez MD /EPI
[2019-08-02 14:30] LABS: PLATELET ESTIMATE NORMAL
[2019-08-02 16:46] VITALS: BP 109/60
== END 2019-08-02 16:52 | disposition home or self-care (01) ==
LOC: ER
PROVIDERS: Emergency Medicine
DX: R07.89 Other chest pain (principal); D57.80 Other sickle-cell disorders without crisis; Z88.6 Allergy status to analgesic agent; Z88.5 Allergy status to narcotic agent; Z79.899 Other long term (current) drug therapy

== ENCOUNTER 2019-08-09 00:55 | Emergency (ER) | payer OTHER ==
[~2019-08-09] VITALS: Ht 160 cm; Wt 59.4 kg
[2019-08-09 05:21] VITALS: BP 123/67
== END 2019-08-09 05:32 | disposition home or self-care (01) ==
LOC: ER 00:55
DX: D57.819 Other sickle-cell disorders with crisis, unspecified (principal); M54.6 Pain in thoracic spine; Z88.6 Allergy status to analgesic agent; Z88.5 Allergy status to narcotic agent; Z79.899 Other long term (current) drug therapy

== ENCOUNTER 2019-08-11 08:48 | Emergency (ER) | payer OTHER ==
[~2019-08-11] VITALS: Ht 160 cm; Wt 59.4 kg
[2019-08-11] MEDS ORDERED: CYCLOBENZAPRINE10 MG PO (08:57)
[2019-08-11] MEDS ORDERED: NAPROXEN375 MG PO (08:59)
[2019-08-11 11:10] VITALS: BP 120/54
== END 2019-08-11 13:37 | disposition home or self-care (01) ==
LOC: ER 08:48
DX: D57.1 Sickle-cell disease without crisis (principal); R11.2 Nausea with vomiting, unspecified; R06.02 Shortness of breath; Z79.899 Other long term (current) drug therapy; Z88.6 Allergy status to analgesic agent; Z88.5 Allergy status to narcotic agent

== ENCOUNTER 2019-08-16 03:34 | Emergency (ER) | payer OTHER ==
[~2019-08-16] VITALS: Ht 160 cm; Wt 68.5 kg
[~2019-08-16 03:34] MED LIST changes: +CYCLOBENZAPRINE10 MG PO; +NAPROXEN375 MG PO
[2019-08-16 04:58] LABS: URINE BILIRUBIN NEGATIVE (Negative); URINE BLOOD 3+ (Negative); URINE CLARITY CLEAR; URINE COLOR YELLOW; URINE GLUCOSE-RANDOM* NEGATIVE (Negative); URINE KETONES NEGATIVE (Negative); URINE LEUKOCYTES-REFLEX NEGATIVE (Negative); URINE NITRITE-REFLEX NEGATIVE (Negative); URINE PROTEIN (DIPSTICK) NEGATIVE (Negative); URINE SPECIFIC GRAVITY 1.015 (1.005-1.035)
[2019-08-16 05:01] LABS: CALCIUM 8.5 mg/dL (8.5-10.1); CREATININE 0.5 mg/dL (0.6-1.0); POTASSIUM 3.7 mmol/L (3.5-5.1)
[2019-08-16 05:07] LABS: TOTAL BILIRUBIN 2.6 mg/dL (0.2-1.0); TOTAL PROTEIN 6.5 g/dL (6.4-8.2)
[2019-08-16 05:13] LABS: ABSOLUTE NEUTROPHILS 7.5 thou/uL (1.4-8.2); BASOPHILS 0.9 % (0.0-2.0); EOSINOPHILS 9.1 % (0.0-3.0); HEMATOCRIT 22.3 % (37.0-47.0); LYMPHOCYTES 17.9 % (24.0-44.0); MCH 31.9 pg (26.0-34.0); MCHC 35.9 g/dL (28.0-37.0); MCV 88.9 fL (80.0-100.0); MONOCYTES 9.6 % (1.0-8.0); PLATELET COUNT 473 thou/uL (150-400); POLYS 62.5 % (36.0-66.0); RBC 2.51 mil/uL (4.20-5.00); RDW 20.6 % (10.5-14.5); WBC 12.1 thou/uL (4.0-11.0)
[2019-08-16 05:22] LABS: BACTERIA-REFLEX 1-9 Few /HPF (None Seen); CASTS None Seen /LPF (None Seen); CRYSTALS None Seen /LPF (None Seen); MUCUS 0-3 Light strn/LPF (None Seen); SQUAMOUS >10 Many /LPF (0-3); URINE RBC 3-10 Few /HPF (0-2); URINE WBC-REFLEX 0-5 Rare /HPF (0-5)
[2019-08-16 06:09] VITALS: BP 126/74
== END 2019-08-16 06:12 | disposition home or self-care (01) ==
LOC: ER 03:34
PROVIDERS: Emergency Medicine
DX: D57.819 Other sickle-cell disorders with crisis, unspecified (principal); R11.2 Nausea with vomiting, unspecified; Z88.6 Allergy status to analgesic agent; Z88.5 Allergy status to narcotic agent; Z79.899 Other long term (current) drug therapy

== ENCOUNTER 2019-08-19 18:42 | Emergency (ER) | payer OTHER ==
[~2019-08-19] VITALS: Ht 160 cm; Wt 59.4 kg
[2019-08-19] MEDS ORDERED: PERCOCET 5-3251 EACH PO (18:51)
[2019-08-19 21:09] VITALS: BP 115/71
== END 2019-08-19 21:10 | disposition home or self-care (01) ==
LOC: ER 18:42
DX: D57.1 Sickle-cell disease without crisis (principal); G89.29 Other chronic pain; Z79.899 Other long term (current) drug therapy; Z88.6 Allergy status to analgesic agent; Z88.5 Allergy status to narcotic agent

== ENCOUNTER 2019-08-22 15:34 | Emergency (ER) | payer OTHER ==
[~2019-08-22] VITALS: Ht 160 cm; Wt 59.4 kg
[2019-08-22 17:44] LABS: HEMOGLOBIN 8.3 gm/dL (12.0-15.0); MCHC 37.9 g/dL (28.0-37.0); MCV 87.1 fL (80.0-100.0); RBC 2.52 mil/uL (4.20-5.00); RDW 20.3 % (10.5-14.5); WBC 8.9 thou/uL (4.0-11.0)
[2019-08-22 17:52] LABS: CREATININE 0.4 mg/dL (0.6-1.0); POTASSIUM 3.8 mmol/L (3.5-5.1)
[2019-08-22 18:11] LABS: ABSOLUTE RETIC COUNT 0.2341 10^6/uL; OBSERVED RETIC COUNT 8.94 % (0.6-2.6)
[2019-08-22 20:49] VITALS: BP 128/81
== END 2019-08-22 20:51 | disposition home or self-care (01) ==
LOC: ER 15:34
PROVIDERS: Physician Assistant
DX: D57.00 Hb-SS disease with crisis, unspecified (principal); R07.9 Chest pain, unspecified; M79.604 Pain in right leg; M54.9 Dorsalgia, unspecified; M54.2 Cervicalgia; Z79.899 Other long term (current) drug therapy; Z88.6 Allergy status to analgesic agent; Z88.5 Allergy status to narcotic agent

== ENCOUNTER 2019-08-28 08:59 | Emergency (ER) | payer OTHER ==
[~2019-08-28] VITALS: Ht 160 cm; Wt 59.0 kg
[2019-08-28 13:20] VITALS: BP 118/69
[2019-08-28] MEDS ORDERED: PERCOCET 5-3251 EACH PO (13:30)
== END 2019-08-28 13:20 | disposition home or self-care (01) ==
LOC: ER 08:59
DX: D57.1 Sickle-cell disease without crisis (principal); R07.89 Other chest pain; R07.81 Pleurodynia; Z76.0 Encounter for issue of repeat prescription; Z79.899 Other long term (current) drug therapy; Z88.6 Allergy status to analgesic agent; Z88.5 Allergy status to narcotic agent

== ENCOUNTER 2019-09-10 20:31 | Emergency (ER) | payer OTHER ==
[~2019-09-10] VITALS: Ht 160 cm; Wt 59.4 kg
[2019-09-10 23:10] VITALS: BP 131/64
== END 2019-09-10 23:13 | disposition home or self-care (01) ==
LOC: ER 20:31
DX: D57.00 Hb-SS disease with crisis, unspecified (principal); M79.604 Pain in right leg; M25.572 Pain in left ankle and joints of left foot; R07.9 Chest pain, unspecified; R53.1 Weakness; R11.2 Nausea with vomiting, unspecified; Z79.899 Other long term (current) drug therapy; Z88.6 Allergy status to analgesic agent; Z88.5 Allergy status to narcotic agent

== ENCOUNTER 2019-09-13 22:13 | Emergency (ER) | payer OTHER ==
[~2019-09-13] VITALS: Ht 160 cm; Wt 59.4 kg
[2019-09-13 22:48] LABS: URINE BILIRUBIN NEGATIVE (Negative); URINE BLOOD TRACE (Negative); URINE CLARITY CLEAR; URINE COLOR YELLOW; URINE GLUCOSE-RANDOM* NEGATIVE (Negative); URINE KETONES NEGATIVE (Negative); URINE NITRITE-REFLEX NEGATIVE (Negative); URINE PROTEIN (DIPSTICK) NEGATIVE (Negative); URINE SPECIFIC GRAVITY 1.015 (1.005-1.035)
[2019-09-13 22:49] LABS: URINE LEUKOCYTES-REFLEX 1+ (Negative)
[2019-09-13 23:03] LABS: CASTS None Seen /LPF (None Seen); CRYSTALS None Seen /LPF (None Seen); MUCUS 0-3 Light strn/LPF (None Seen); SQUAMOUS 0-3 Few /LPF (0-3); URINE RBC 3-10 Few /HPF (0-2)
[2019-09-14 00:31] LABS: HEMOGLOBIN 8.3 gm/dL (12.0-15.0); PLATELET COUNT 492 thou/uL (150-400); WBC 7.6 thou/uL (4.0-11.0)
[2019-09-14 00:33] LABS: HEMATOCRIT 22.2 % (37.0-47.0); MCH 31.3 pg (26.0-34.0); MCHC 37.3 g/dL (28.0-37.0); MCV 83.9 fL (80.0-100.0); RBC 2.65 mil/uL (4.20-5.00); RDW 22.8 % (10.5-14.5)
[2019-09-14 00:49] LABS: ABSOLUTE RETIC COUNT 0.1915 10^6/uL; OBSERVED RETIC COUNT 7.42 % (0.6-2.6)
[2019-09-14] MEDS ORDERED: PYRIDIUM200 MG PO (01:43)
[2019-09-14] MEDS ORDERED: MACROBID 100 M100 M1 PO (01:43)
[2019-09-14] MEDS ORDERED: ZOFRAN ODT4 MG PO (01:45)
[2019-09-14 01:46] VITALS: BP 121/66
[2019-09-14 01:48] LABS: ABSOLUTE NEUTROPHILS 3.5 thou/uL (1.4-8.2); ANISOCYTOSIS 3+; ATYPICAL LYMPHS 3 %; NUCLEATED RBCS 1 /100WBC
[2019-09-14 01:50] LABS: LARGE PLATELETS OCCASIONAL; POLYCHROMASIA 1+; SCHISTOCYTES 1+
== END 2019-09-14 01:50 | disposition home or self-care (01) ==
LOC: ER 22:13
PROVIDERS: Emergency Medicine
DX: N30.00 Acute cystitis without hematuria (principal); D57.00 Hb-SS disease with crisis, unspecified; Z79.899 Other long term (current) drug therapy; Z88.5 Allergy status to narcotic agent; Z88.6 Allergy status to analgesic agent

== ENCOUNTER 2019-09-17 09:31 | Emergency (ER) | payer OTHER ==
[~2019-09-17] VITALS: Ht 160 cm; Wt 59.4 kg
[2019-09-17 09:31] VITALS: BP 119/75
[~2019-09-17 09:31] MED LIST changes: +MACROBID 100 M100 M1 PO; +PYRIDIUM200 MG PO
--- NOTE | 2019-09-17 15:38 | EKG ---
[facility] [place] [address] ELECTROCARDIOGRAM REPORT Name: RULA TAVAREZ Room #: DEP [facility]#: [id number] Admission: 09/17/19 Attend Phys: Discharge: 09/17/19 Date of : [birth year] Report #: [id number] THIS REPORT FOR: cc: FILI Lam family physician/PCP FILI - Carole family physician/PCP Kt Hernandez MD ~ THIS REPORT FOR: //name// [facility] ED Test Date: 2019-09-17 Test Time: 10:14:13 Pat Name: RULA TAVAREZ Department: Room: Gender: Pump Press Operator: EM : 1995 Requested By: Farrukh Olivas Order Number: [id number] MD: Kt Hernandez Measurements Intervals [place] Rate: 83 P: 0 CT: 209 QRS: 22 QRSD: 81 T: 30 QT: 373 QTc: 439 Interpretive Statements Sinus rhythm Borderline prolonged CT interval Borderline T wave abnormalities Compared to ECG 08/02/2019 11:04:56 No significant changes Electronically Signed On 09-17-2019 15:38:09 CDT by Kt Hernandez [email or web address] <ELECTRONICALLY SIGNED> By: Kt Hernandez MD 09/17/19 1538 1014 1014 Kt Hernandez MD /EPI
== END 2019-09-17 10:35 | disposition left against medical advice (07) ==
LOC: ER 09:31
DX: D57.1 Sickle-cell disease without crisis (principal); R07.89 Other chest pain; Z79.899 Other long term (current) drug therapy; Z88.6 Allergy status to analgesic agent; Z88.5 Allergy status to narcotic agent

== ENCOUNTER 2019-09-19 13:03 | Emergency (ER) | payer OTHER ==
[~2019-09-19] VITALS: Ht 160 cm; Wt 59.4 kg
[2019-09-19 14:15] LABS: CALCIUM 9.3 mg/dL (8.5-10.1); CREATININE 0.6 mg/dL (0.6-1.0); POTASSIUM 3.9 mmol/L (3.5-5.1)
[2019-09-19 14:22] LABS: ALBUMIN 5.3 g/dL (3.4-5.0); TOTAL BILIRUBIN 5.4 mg/dL (0.2-1.0); TOTAL PROTEIN 8.4 g/dL (6.4-8.2)
[2019-09-19 14:37] LABS: ABSOLUTE RETIC COUNT 0.2552 10^6/uL; HEMATOCRIT 24.7 % (37.0-47.0); MCHC 36.4 g/dL (28.0-37.0); MCV 85.2 fL (80.0-100.0); OBSERVED RETIC COUNT 8.81 % (0.6-2.6); PLATELET COUNT 547 thou/uL (150-400); RDW 21.3 % (10.5-14.5); WBC 8.9 thou/uL (4.0-11.0)
[2019-09-19 15:13] LABS: DIRECT BILIRUBIN 0.4 mg/dL (<0.1-0.2); TOTAL BILIRUBIN 5.4 mg/dL (0.2-1.0)
[2019-09-19 15:32] LABS: ABSOLUTE NEUTROPHILS 3.6 thou/uL (1.4-8.2); ANISOCYTOSIS 2+; NUCLEATED RBCS 1 /100WBC; PLATELET ESTIMATE NORMAL
[2019-09-19 17:21] VITALS: BP 120/80
--- NOTE | 2019-09-20 08:12 | EKG ---
[facility] [place] [address] ELECTROCARDIOGRAM REPORT Name: RULA TAVAREZ Room #: DEP [facility]#: [id number] Admission: 09/19/19 Attend Phys: Discharge: 09/19/19 Date of : [birth year] Report #: [id number] THIS REPORT FOR: cc: FILI - Carole family physician/PCP FILI - Carole family physician/PCP Kt Hernandez MD ~ THIS REPORT FOR: //name// [facility] ED Test Date: 2019-09-19 Test Time: 14:56:28 Pat Name: RULA TAVAREZ Department: Room: Gender: F Garden Implement Mechanic: NUBIA WATKINS : 1995 Requested By: Vinod Salcido Order Number: [id number] MD: Kt Hernandez Measurements Intervals [place] Rate: 74 P: 21 VA: 211 QRS: 24 QRSD: 82 T: 29 QT: 388 QTc: 431 Interpretive Statements Sinus rhythm Prolonged VA interval LVH by voltage Compared to ECG 09/17/2019 10:14:13 Left ventricular hypertrophy now present T-wave abnormality no longer present Electronically Signed On 09-20-2019 8:12:42 CDT by Kt Hernandez [email or web address] <ELECTRONICALLY SIGNED> By: Kt Hernandez MD 09/20/19811 145 55 Kt Hernandez MD /EPI
== END 2019-09-19 17:21 | disposition home or self-care (01) ==
LOC: ER 13:03
PROVIDERS: Emergency Medicine
DX: R06.00 Dyspnea, unspecified (principal); R11.2 Nausea with vomiting, unspecified; R07.89 Other chest pain; R53.1 Weakness; Z79.899 Other long term (current) drug therapy; Z88.6 Allergy status to analgesic agent; Z88.5 Allergy status to narcotic agent

== ENCOUNTER 2019-09-26 17:23 | Emergency (ER) | payer OTHER ==
[~2019-09-26] VITALS: Ht 160 cm; Wt 58.1 kg
[2019-09-26 22:26] VITALS: BP 121/70
--- NOTE | 2019-09-27 08:37 | EKG ---
[facility] [place] [address] ELECTROCARDIOGRAM REPORT Name: RULA TAVAREZ Room #: DEP [facility]#: [id number] Admission: 09/26/19 Attend Phys: Discharge: 09/26/19 Date of : [birth year] Report #: [id number] THIS REPORT FOR: cc: FILI - Carole family physician/PCP FILI - Carole family physician/PCP Clarence Hernandez MD [facility] THIS REPORT FOR: //name// [facility] ED Test Date: 2019-09-26 Test Time: 17:27:07 Pat Name: RULA TAVAREZ Department: Room: Gender: Fine Arts Chair: LUIS : 1995 Requested By: Aris Caban Order Number: [id number] MD: Clarence Hernandez Measurements Intervals [place] Rate: 84 P: 67 ID: 200 QRS: 36 QRSD: 83 T: 56 QT: 352 QTc: 417 Interpretive Statements Sinus rhythm Nonspecific ST segment abnormality Compared to ECG 09/19/2019 14:56:28 First degree AV block no longer present Electronically Signed On 09-27-2019 8:37:11 CDT by Clarence Hernandez [email or web address] <ELECTRONICALLY SIGNED> By: Clarence Hernandez MD, FACC 09/27/19 0837 1727 Clarence Hernandez MD, [facility] /EPI
== END 2019-09-26 22:26 | disposition home or self-care (01) ==
LOC: ER 17:23
DX: D57.00 Hb-SS disease with crisis, unspecified (principal); R11.0 Nausea; Z79.899 Other long term (current) drug therapy; Z88.6 Allergy status to analgesic agent; Z88.5 Allergy status to narcotic agent

== ENCOUNTER 2019-09-28 08:22 | Emergency (ER) | payer OTHER ==
[~2019-09-28] VITALS: Ht 160 cm; Wt 58.1 kg
[2019-09-28 11:24] VITALS: BP 112/71
== END 2019-09-28 11:24 | disposition home or self-care (01) ==
LOC: ER 08:22
DX: R51 Headache (principal); M54.2 Cervicalgia; M25.551 Pain in right hip; M54.9 Dorsalgia, unspecified; Z79.899 Other long term (current) drug therapy; Z88.5 Allergy status to narcotic agent; Z88.6 Allergy status to analgesic agent; V49.9XXA Car occupant (driver) (passenger) injured in unspecified traffic accident, initial encounter; Y93.89 Activity, other specified; Y92.410 Unspecified street and highway as the place of occurrence of the external cause; Y99.8 Other external cause status

== ENCOUNTER 2019-10-04 21:19 | Emergency (ER) | payer OTHER ==
[~2019-10-04] VITALS: Ht 160 cm; Wt 59.0 kg
[2019-10-05 00:55] VITALS: BP 00/00
--- NOTE | 2019-10-07 07:58 | EKG ---
[facility] [place] [address] ELECTROCARDIOGRAM REPORT Name: RULA TAVAREZ Room #: DEP [facility]#: [id number] Admission: 10/04/19 Attend Phys: Discharge: 10/05/19 Date of : [birth year] Report #: [id number] THIS REPORT FOR: cc: FILI Lam family physician/PCP FILI - Carole family physician/PCP Clarence Hernandez MD [facility] THIS REPORT FOR: //name// [facility] ED Test Date: 2019-10-04 Test Time: 21:35:42 Pat Name: RULA TAVAREZ Department: Room: Gender: Yarn Spooler: : 1995 Requested By: Farhana Jacobs Order Number: [id number] MD: Clarence Hernandez Measurements Intervals [place] Rate: 72 P: 74 MT: 207 QRS: 23 QRSD: 84 T: 28 QT: 374 QTc: 410 Interpretive Statements Sinus rhythm Borderline prolonged MT interval Compared to ECG 09/26/2019 17:27:07 ST (T wave) deviation no longer present Electronically Signed On 10-07-2019 7:58:21 CDT by Clarence Hernandez [email or web address] <ELECTRONICALLY SIGNED> By: Clarence Hernandez MD, [facility] 10/07/19 0758 Clarence Hernandez MD, [facility] /EPI
== END 2019-10-05 00:56 | disposition left against medical advice (07) ==
LOC: ER 21:19
DX: R22.2 Localized swelling, mass and lump, trunk (principal); D57.1 Sickle-cell disease without crisis; F17.210 Nicotine dependence, cigarettes, uncomplicated; Z88.6 Allergy status to analgesic agent; Z88.8 Allergy status to other drugs, medicaments and biological substances

== ENCOUNTER 2019-10-17 13:58 | Emergency (ER) | payer OTHER ==
[~2019-10-17] VITALS: Ht 160 cm; Wt 65.8 kg
[2019-10-17 16:24] LABS: ABSOLUTE RETIC COUNT 0.1789 10^6/uL; HEMATOCRIT 22.5 % (37.0-47.0); HEMOGLOBIN 8.2 gm/dL (12.0-15.0); MCH 30.6 pg (26.0-34.0); MCHC 36.3 g/dL (28.0-37.0); MCV 84.1 fL (80.0-100.0); OBSERVED RETIC COUNT 6.69 % (0.6-2.6); PLATELET COUNT 560 thou/uL (150-400); RBC 2.68 mil/uL (4.20-5.00); RDW 21.8 % (10.5-14.5)
[2019-10-17 16:31] LABS: CREATININE 0.5 mg/dL (0.6-1.0)
[2019-10-17 16:53] LABS: ABSOLUTE NEUTROPHILS 11.5 thou/uL (1.4-8.2); ATYPICAL LYMPHS 1 %; NUCLEATED RBCS 5 /100WBC
[2019-10-17 16:54] LABS: ANISOCYTOSIS 1+; POLYCHROMASIA 1+; TARGET CELLS OCCASIONAL
[2019-10-17 19:30] VITALS: BP 110/69
== END 2019-10-17 19:35 | disposition home or self-care (01) ==
LOC: ER 13:58
PROVIDERS: Emergency Medicine
DX: R25.2 Cramp and spasm (principal); M79.604 Pain in right leg; R26.89 Other abnormalities of gait and mobility; R11.2 Nausea with vomiting, unspecified; D57.1 Sickle-cell disease without crisis; Z79.899 Other long term (current) drug therapy; Z88.6 Allergy status to analgesic agent; Z88.5 Allergy status to narcotic agent

== ENCOUNTER 2020-02-12 17:47 | Emergency (ER) | payer OTHER ==
[~2020-02-12] VITALS: Ht 160 cm; Wt 58.5 kg
[2020-02-12 20:28] LABS: HEMATOCRIT 24.3 % (37.0-47.0); HEMOGLOBIN 8.8 gm/dL (12.0-15.0); MCH 31.8 pg (26.0-34.0); MCHC 36.4 g/dL (28.0-37.0); MCV 87.4 fL (80.0-100.0); PLATELET COUNT 570 thou/uL (150-400); RBC 2.78 mil/uL (4.20-5.00); RDW 20.5 % (10.5-14.5); WBC 9.4 thou/uL (4.0-11.0)
[2020-02-12 20:29] LABS: ABSOLUTE RETIC COUNT 0.1932 10^6/uL; OBSERVED RETIC COUNT 6.95 % (0.6-2.6)
[2020-02-12] MEDS ORDERED: PERCOCET 5-3251 EACH PO (20:43)
[2020-02-12] MEDS ORDERED: ZOFRAN ODT4 MG PO (20:43)
[2020-02-12 20:52] LABS: ABSOLUTE NEUTROPHILS 4.5 thou/uL (1.4-8.2); ANISOCYTOSIS 1+; NUCLEATED RBCS 3 /100WBC
[2020-02-12 20:53] VITALS: BP 148/87
[2020-02-12 20:53] LABS: POLYCHROMASIA OCCASIONAL; TARGET CELLS OCCASIONAL
--- NOTE | 2020-02-13 07:39 | EKG ---
[place] [address] [facility] [place] [employer] [place] [address] ELECTROCARDIOGRAM REPORT Name: RULA TAVAREZ Room #: [facility]#: [id number] Admission: 02/12/20 Attend Phys: Discharge: 02/12/20 Date of : [birth year] Report #: [id number] [facility] ED Test Date: 2020-02-12 Test Time: 17:59:47 Pat Name: RULA TAVAREZ Department: Room: Gender: F Correctional Supervising Cook: winnie : 1995 Requested By: Ashlee Serrano Order Number: [id number] MD: Clarence Hernandez Measurements Intervals [place] Rate: 85 P: 72 [place]: 181 QRS: 35 QRSD: 76 T: 3 QT: 451 QTc: 537 Interpretive Statements Sinus rhythm Borderline T abnormalities, anterior leads Prolonged QT interval Baseline wander in lead(s) III,aVF Compared to ECG 10/04/2019 21:35:42 T-wave abnormality now present QT interval has lengthened Electronically Signed On 02-13-2020 7:39:44 DIRECTOR PART by Clarence Hernandez [email or web address] <ELECTRONICALLY SIGNED> By: Clarence Hernandez MD, [facility] 02/13/20 0739 1759 1759 Clarence Hernandez MD, [facility] /EPI
== END 2020-02-12 20:53 | disposition home or self-care (01) ==
LOC: ER 17:47
PROVIDERS: Emergency Medicine
DX: D57.00 Hb-SS disease with crisis, unspecified (principal); R07.89 Other chest pain; M25.511 Pain in right shoulder; R94.31 Abnormal electrocardiogram [ECG] [EKG]

== ENCOUNTER 2020-02-16 23:10 | Emergency (ER) | payer OTHER ==
[~2020-02-16] VITALS: Ht 160 cm; Wt 58.5 kg
[2020-02-16] MEDS ORDERED: PERCOCET 10-321 EAC1 PO (23:26)
[2020-02-17 04:09] VITALS: BP 136/81
--- NOTE | 2020-02-17 14:28 | EKG ---
[address] [place] [address] ELECTROCARDIOGRAM REPORT Name: RULA TAVAREZ Room #: [facility]#: [id number] Admission: 02/16/20 Attend Phys: Discharge: 02/17/20 Date of : [birth year] Report #: [id number] [facility] ED Test Date: 2020-02-16 Test Time: 23:19:25 Pat Name: RULA TAVAREZ Department: Room: Gender: F Composition Teacher: RICHARD : 1995 Requested By: Farhana Jacobs Order Number: [id number] MD: Diego Griffiths Measurements Intervals [place] Rate: 94 P: 22 [place]: 195 QRS: 38 QRSD: 84 T: 44 QT: 326 QTc: 408 Interpretive Statements Sinus rhythm Nonspecific T abnrm, anterolateral leads Compared to ECG 02/12/2020 17:59:47 T-wave abnormality no longer present Prolonged QT interval no longer present Electronically Signed On 02-17-2020 14:27:50 INTERNET SOURCER by Diego Griffiths [email or web address] <ELECTRONICALLY SIGNED> By: Diego Griffiths MD, [facility] 02/17/20 1427 2319 18 Diego Griffiths MD, FAC /EPI
== END 2020-02-17 04:12 | disposition home or self-care (01) ==
LOC: ER 23:10
DX: D57.1 Sickle-cell disease without crisis (principal); G89.29 Other chronic pain; Z88.6 Allergy status to analgesic agent; Z88.5 Allergy status to narcotic agent; Z79.899 Other long term (current) drug therapy

== ENCOUNTER 2020-02-21 01:33 | Emergency (ER) | payer OTHER ==
[~2020-02-21] VITALS: Ht 160 cm; Wt 58.5 kg
[2020-02-21 02:49] VITALS: BP 122/69
== END 2020-02-21 02:51 | disposition home or self-care (01) ==
LOC: ER 01:33
DX: D57.00 Hb-SS disease with crisis, unspecified (principal); Z88.6 Allergy status to analgesic agent; Z88.5 Allergy status to narcotic agent; Z79.899 Other long term (current) drug therapy

== ENCOUNTER 2020-02-25 01:32 | Emergency (ER) | payer OTHER ==
[~2020-02-25] VITALS: Ht 160 cm; Wt 56.7 kg
[2020-02-25 02:20] LABS: URINE BILIRUBIN NEGATIVE (Negative); URINE BLOOD NEGATIVE (Negative); URINE CLARITY CLEAR; URINE COLOR YELLOW; URINE GLUCOSE-RANDOM* NEGATIVE (Negative); URINE KETONES NEGATIVE (Negative); URINE LEUKOCYTES-REFLEX 1+ (Negative); URINE NITRITE-REFLEX NEGATIVE (Negative); URINE PROTEIN (DIPSTICK) NEGATIVE (Negative)
[2020-02-25 02:40] LABS: BACTERIA-REFLEX 1-9 Few /HPF (None Seen); CASTS None Seen /LPF (None Seen); CRYSTALS None Seen /LPF (None Seen); MUCUS 0-3 Light strn/LPF (None Seen); SQUAMOUS 4-10 Moderate /LPF (0-3); URINE RBC 0-2 Rare /HPF (0-2); URINE WBC-REFLEX 6-15 Few /HPF (0-5)
[2020-02-25 02:43] LABS: ABSOLUTE NEUTROPHILS 4.3 thou/uL (1.4-8.2); EOSINOPHILS 3.3 % (0.0-3.0); HEMATOCRIT 25.5 % (37.0-47.0); HEMOGLOBIN 9.1 gm/dL (12.0-15.0); LYMPHOCYTES 38.9 % (24.0-44.0); MCH 30.6 pg (26.0-34.0); MCHC 35.8 g/dL (28.0-37.0); MCV 85.5 fL (80.0-100.0); MONOCYTES 11.1 % (1.0-8.0); PLATELET COUNT 573 thou/uL (150-400); POLYS 45.7 % (36.0-66.0); RBC 2.98 mil/uL (4.20-5.00); RDW 21.8 % (10.5-14.5); WBC 9.4 thou/uL (4.0-11.0)
[2020-02-25 02:55] LABS: CALCIUM 10.2 mg/dL (8.5-10.1); CREATININE 0.6 mg/dL (0.6-1.0)
[2020-02-25 03:01] LABS: ALBUMIN 4.5 g/dL (3.4-5.0); TOTAL BILIRUBIN 3.6 mg/dL (0.2-1.0); TOTAL PROTEIN 7.8 g/dL (6.4-8.2)
[2020-02-25] MEDS ORDERED: KEFLEX500 M1 PO (03:12)
[2020-02-25 03:26] VITALS: BP 133/76
--- NOTE | 2020-02-25 07:36 | EKG ---
[place] [address] [facility] [place] [address] ELECTROCARDIOGRAM REPORT Name: RULA TAVAREZ Room #: DEP [facility]#: [id number] Admission: 02/25/20 Attend Phys: Discharge: 02/25/20 Date of : [birth year] Report #: [id number] [facility] ED Test Date: 2020-02-25 Test Time: 02:38:22 Pat Name: RULA TAVAREZ Department: Room: Gender: F Sales Branch Manager: [facility] : 1995 Requested By: Forest Selby Order Number: [id number] MD: Diego Griffiths Measurements Intervals [place] Rate: 80 P: 42 VT: 185 QRS: 40 QRSD: 82 T: 58 QT: 332 QTc: 383 Interpretive Statements Sinus rhythm Nonspecific T abnrm, anterolateral leads Compared to ECG 02/16/2020 23:19:25 No significant changes Electronically Signed On 02-25-2020 7:36:09 FARMWORKER GENERAL by Diego Griffiths [email or web address] <ELECTRONICALLY SIGNED> By: Diego Griffiths MD, [facility] 02/25/20 0736 0238 0238 Diego Griffiths MD, FACC /EPI
== END 2020-02-25 03:26 | disposition home or self-care (01) ==
LOC: ER 01:32
PROVIDERS: Emergency Medicine
DX: D57.00 Hb-SS disease with crisis, unspecified (principal); N39.0 Urinary tract infection, site not specified; R07.89 Other chest pain; R10.9 Unspecified abdominal pain; Z79.899 Other long term (current) drug therapy; Z88.6 Allergy status to analgesic agent; Z88.5 Allergy status to narcotic agent

== ENCOUNTER 2020-03-03 16:52 | Emergency (ER) | payer OTHER ==
[~2020-03-03] VITALS: Ht 160 cm; Wt 58.5 kg
[2020-03-03 22:04] LABS: ABSOLUTE NEUTROPHILS 5.5 thou/uL (1.4-8.2)
[2020-03-03 22:06] LABS: BASOPHILS 1.1 % (0.0-2.0); EOSINOPHILS 3.8 % (0.0-3.0); HEMATOCRIT 22.1 % (37.0-47.0); LYMPHOCYTES 28.1 % (24.0-44.0); MCH 30.9 pg (26.0-34.0); MCHC 36.3 g/dL (28.0-37.0); MONOCYTES 12.3 % (1.0-8.0); PLATELET COUNT 524 thou/uL (150-400); POLYS 54.7 % (36.0-66.0); RDW 24.3 % (10.5-14.5)
[2020-03-03 22:10] LABS: ABSOLUTE RETIC COUNT 0.2164 10^6/uL; OBSERVED RETIC COUNT 8.38 % (0.6-2.6)
[2020-03-03 22:12] LABS: ANION GAP 13 mmol/L (7-16); BUN 4 mg/dL (7-18); CALCIUM 9.3 mg/dL (8.5-10.1); CHLORIDE 103 mmol/L (98-107); CO2 23 mmol/L (21-32); CREATININE 0.5 mg/dL (0.6-1.0); GLUCOSE 109 mg/dL (74-106); POTASSIUM 3.9 mmol/L (3.5-5.1); SODIUM 139 mmol/L (136-145)
[2020-03-03 22:21] LABS: TROPONIN-I <0.06 ng/mL (<0.06)
[2020-03-03 23:15] LABS: ANISOCYTOSIS 3+; PLATELET ESTIMATE INCREASED; POIKILOCYTOSIS 3+
[2020-03-03 23:45] VITALS: BP 103/64
== END 2020-03-03 23:45 | disposition home or self-care (01) ==
LOC: ER 16:52
PROVIDERS: Emergency Medicine
DX: D58.9 Hereditary hemolytic anemia, unspecified (principal); R07.89 Other chest pain; M79.18 Myalgia, other site; R06.02 Shortness of breath; M25.551 Pain in right hip; Z79.899 Other long term (current) drug therapy; Z88.6 Allergy status to analgesic agent; Z88.5 Allergy status to narcotic agent

== ENCOUNTER 2020-03-19 02:57 | Emergency (ER) | payer OTHER ==
[~2020-03-19] VITALS: Ht 160 cm; Wt 58.5 kg
[2020-03-19 04:04] LABS: URINE BILIRUBIN NEGATIVE (Negative); URINE BLOOD NEGATIVE (Negative); URINE CLARITY CLEAR; URINE COLOR YELLOW; URINE GLUCOSE-RANDOM* NEGATIVE (Negative); URINE KETONES NEGATIVE (Negative); URINE LEUKOCYTES-REFLEX NEGATIVE (Negative); URINE NITRITE-REFLEX NEGATIVE (Negative); URINE PROTEIN (DIPSTICK) NEGATIVE (Negative)
[2020-03-19 04:49] VITALS: BP 121/70
== END 2020-03-19 04:50 | disposition home or self-care (01) ==
LOC: ER 02:57
PROVIDERS: Emergency Medicine
DX: D57.80 Other sickle-cell disorders without crisis (principal); R30.0 Dysuria; Z88.6 Allergy status to analgesic agent; Z88.5 Allergy status to narcotic agent; Z79.899 Other long term (current) drug therapy

== ENCOUNTER 2020-03-23 01:30 | Emergency (ER) | payer OTHER ==
[~2020-03-23] VITALS: Ht 160 cm; Wt 61.2 kg
[2020-03-23 03:04] VITALS: BP 134/70
--- NOTE | 2020-03-23 06:49 | EKG ---
[place] [address] [employer] [facility] [place] [address] ELECTROCARDIOGRAM REPORT Name: RULA TAVAREZ Room #: DEP [facility]#: [id number] Admission: 03/23/20 Attend Phys: Discharge: 03/23/20 Date of : [birth year] Report #: [id number] [facility] ED Test Date: 2020-03-23 Test Time: 02:20:52 Pat Name: RULA TAVAREZ Department: Room: Gender: F Taker Out: jackeline : 1995 Requested By: Forest Selby Order Number: [id number] MD: Diego Griffiths Measurements Intervals [place] Rate: 83 P: 48 VA: 189 QRS: 26 QRSD: 82 T: 67 QT: 370 QTc: 435 Interpretive Statements Sinus rhythm Probable left atrial enlargement Probable left ventricular hypertrophy Compared to ECG 02/25/2020 02:38:22 No significant changes Electronically Signed On 03-23-2020 6:48:46 TOP AND TRIM WORKER by Diego Griffiths [email or web address] <ELECTRONICALLY SIGNED> By: Diego Griffiths MD, [facility] 03/23/20 0648 022 0220 Diego Griffiths MD, FACC /EPI
== END 2020-03-23 03:05 | disposition home or self-care (01) ==
LOC: ER 01:30
DX: D57.00 Hb-SS disease with crisis, unspecified (principal); Z79.899 Other long term (current) drug therapy; Z88.6 Allergy status to analgesic agent; Z88.5 Allergy status to narcotic agent

== ENCOUNTER 2020-04-17 01:21 | Emergency (ER) | payer OTHER ==
[~2020-04-17] VITALS: Ht 160 cm; Wt 61.2 kg
[2020-04-17 02:06] LABS: ABSOLUTE NEUTROPHILS 5.2 thou/uL (1.4-8.2); BASOPHILS 1.1 % (0.0-2.0); EOSINOPHILS 4.5 % (0.0-3.0); HEMATOCRIT 23.1 % (37.0-47.0); HEMOGLOBIN 8.4 gm/dL (12.0-15.0); LYMPHOCYTES 35.4 % (24.0-44.0); MCH 31.1 pg (26.0-34.0); MCHC 36.3 g/dL (28.0-37.0); MCV 85.7 fL (80.0-100.0); MONOCYTES 11.7 % (1.0-8.0); PLATELET COUNT 504 thou/uL (150-400); POLYS 47.3 % (36.0-66.0); RDW 22.5 % (10.5-14.5); WBC 10.9 thou/uL (4.0-11.0)
[2020-04-17 02:11] LABS: ABSOLUTE RETIC COUNT 0.2179 10^6/uL; OBSERVED RETIC COUNT 8.12 % (0.6-2.6)
[2020-04-17 02:17] LABS: CALCIUM 8.6 mg/dL (8.5-10.1); CREATININE 0.6 mg/dL (0.6-1.0); POTASSIUM 3.8 mmol/L (3.5-5.1)
[2020-04-17 02:22] LABS: ALBUMIN 4.3 g/dL (3.4-5.0); TOTAL BILIRUBIN 3.9 mg/dL (0.2-1.0); TOTAL PROTEIN 7.3 g/dL (6.4-8.2)
[2020-04-17 03:29] LABS: ANISOCYTOSIS 3+
[2020-04-17 04:00] VITALS: BP 120/72
== END 2020-04-17 04:01 | disposition home or self-care (01) ==
LOC: ER 01:21
PROVIDERS: Emergency Medicine
DX: D57.00 Hb-SS disease with crisis, unspecified (principal); Z79.899 Other long term (current) drug therapy; Z88.5 Allergy status to narcotic agent; Z88.6 Allergy status to analgesic agent

== ENCOUNTER 2020-05-24 00:13 | Emergency (ER) | payer OTHER ==
[~2020-05-24] VITALS: Ht 160 cm; Wt 62.1 kg
[2020-05-24] MEDS ORDERED: CYCLOBENZAPRINE5 MG PO (03:58)
[2020-05-24] MEDS ORDERED: MOBIC15 MG PO (03:58)
[2020-05-24 04:13] VITALS: BP 125/74
== END 2020-05-24 04:14 | disposition home or self-care (01) ==
LOC: ER 00:13
DX: M43.6 Torticollis (principal); Z88.6 Allergy status to analgesic agent; Z88.5 Allergy status to narcotic agent; Z79.899 Other long term (current) drug therapy

== ENCOUNTER 2020-06-08 00:11 | Emergency (ER) | payer OTHER ==
[~2020-06-08] VITALS: Ht 152.4 cm; Wt 62.1 kg
[~2020-06-08 00:11] MED LIST changes: +CYCLOBENZAPRINE5 MG PO; +MOBIC15 MG PO
[2020-06-08 00:22] VITALS: BP 118/75
== END 2020-06-08 03:42 | disposition home or self-care (01) ==
LOC: ER 00:11
DX: D57.00 Hb-SS disease with crisis, unspecified (principal); Z88.6 Allergy status to analgesic agent; Z88.5 Allergy status to narcotic agent

== ENCOUNTER 2020-06-14 19:09 | Inpatient (IN) | payer OTHER ==
[~2020-06-14] VITALS: Ht 160 cm; Wt 63.5 kg
[2020-06-14 19:21] VITALS: BP 128/95
[2020-06-14 20:19] LABS: HEMATOCRIT 21.1 % (37.0-47.0); HEMOGLOBIN 8.5 gm/dL (12.0-15.0); MCH 31.2 pg (26.0-34.0); MCHC 40.1 g/dL (28.0-37.0); MCV 77.7 fL (80.0-100.0); PLATELET COUNT 529 thou/uL (150-400); RBC 2.71 mil/uL (4.20-5.00); RDW 24.2 % (10.5-14.5); WBC 17.2 thou/uL (4.0-11.0)
[2020-06-14 20:22] LABS: CALCIUM 9.2 mg/dL (8.5-10.1); CREATININE 0.7 mg/dL (0.6-1.0); POTASSIUM 3.4 mmol/L (3.5-5.1)
[2020-06-14 20:28] LABS: ALBUMIN 4.3 g/dL (3.4-5.0); TOTAL BILIRUBIN 5.9 mg/dL (0.2-1.0)
[2020-06-14 20:44] LABS: URINE BLOOD 2+ (Negative); URINE CLARITY CLOUDY; URINE COLOR YELLOW; URINE GLUCOSE-RANDOM* NEGATIVE (Negative); URINE KETONES 2+ (Negative); URINE PROTEIN (DIPSTICK) 2+ (Negative); URINE SPECIFIC GRAVITY 1.015 (1.005-1.035); URINE UROBILINOGEN >= 8.0 E.U./dl (0.2-1.0)
[2020-06-14 20:47] LABS: URINE LEUKOCYTES-REFLEX 3+ (Negative); URINE NITRITE-REFLEX POSITIVE (Negative)
[2020-06-14 20:49] LABS: ICTOTEST (BILI CONFIRMATORY) Negative (Negative); URINE BILIRUBIN NEGATIVE (Negative)
[2020-06-14 20:55] LABS: BACTERIA-REFLEX >30 Many /HPF (None Seen); CASTS None Seen /LPF (None Seen); CRYSTALS None Seen /LPF (None Seen); SQUAMOUS 0-3 Few /LPF (0-3); URINE RBC 3-10 Few /HPF (NONE SEEN); URINE WBC-REFLEX >25 Many /HPF (0-5)
[2020-06-14 21:47] VITALS: BP 117/66
[2020-06-14 21:52] LABS: ABSOLUTE NEUTROPHILS 12.4 thou/uL (1.4-8.2); ANISOCYTOSIS 3+; ATYPICAL LYMPHS 1 %
[2020-06-14 22:45] VITALS: BP 123/72
[2020-06-14 22:55] VITALS: BP 121/78
--- NOTE | 2020-06-15 01:51 | NUR ---
PT ADMITTED AROUND 2245 HRS. ALERT AND ORIENTED. UP STEADILY. IVF STARTED. PT PRN DIULADID GIVEN WITH RELIEF.ADMISSION COMPLETED. DX OF UTI AND SICKLE CELL. PT ORIENTED TO STAFF AND USE OF CALL LIGHT. NO FURTHER CONCERNS.
[2020-06-15 06:31] LABS: MCH 31.2 pg (26.0-34.0); MCV 80.1 fL (80.0-100.0); RBC 2.04 mil/uL (4.20-5.00); RDW 23.8 % (10.5-14.5); WBC 16.6 thou/uL (4.0-11.0)
[2020-06-15 06:35] LABS: HEMATOCRIT 16.4 % (37.0-47.0); HEMOGLOBIN 6.4 gm/dL (12.0-15.0)
[2020-06-15 06:43] LABS: CALCIUM 7.8 mg/dL (8.5-10.1); CREATININE 0.6 mg/dL (0.6-1.0); POTASSIUM 3.6 mmol/L (3.5-5.1)
[2020-06-15 07:21] VITALS: BP 113/64
--- NOTE | 2020-06-15 16:05 | NUR ---
PT ADMITTED RELATED TO SICKLE CELL CRISIS, UTI. CM REVIEWED CHART AND SPOKE WITH CARE TEAM. CM MET WITH PT AT BEDSIDE THIS DAY. PT APPEARED TO BE A&O X4. CM ROLE INTRODUCED. PT INDICATED THAT SHE RESIDES IN A HOUSE WITH HER SON WITH A NUMBER OF STEPS TO ENTER AND A NUMBER OF STEPS INSIDE. 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 PT INDICATED NO DME, OP, OR HH HX. PT INDICATED SHE HAS A PCP AND A HEMOTOLOGIST THAT SHE FOLLOWS WITH IN THE COMMUNITY BUT COULDN'T RECALL PROVIDER. PT INDICATED SHE PLANS TO RETURN HOME ONCE MEDICALLY STABLE. CM FOLLOWING REGARDING DC PLANNING.
[2020-06-15 16:21] VITALS: BP 110/56
--- NOTE | 2020-06-15 17:58 | NUR ---
ASSUMED PATIENT CARE AT 0700. PAIN MED SGIVEN NEEDS Q4H. VSS. WILL KEEP MONITOR.
[2020-06-15 19:10] VITALS: BP 119/64
--- NOTE | 2020-06-16 05:32 | NUR ---
Assumed pt at 1900, A/OX4, VSS. C/o pain to BLE, medicated with last dose of Dilaudid @2200 pt resting after pain meds,called for pain meds at 0400 medicated with Percocet,reports no relief from pain med. NEYMAR Patterson notified N.O Dilaudid 1mgX1 and follow up with van Rebolledoduring the day. Up ad eleanor in room, IVF infusing via RAC w/o problems. Will continue to monitor pt.
[2020-06-16 05:58] LABS: MCH 31.9 pg (26.0-34.0); MCHC 39.8 g/dL (28.0-37.0); MCV 80.2 fL (80.0-100.0); RBC 1.96 mil/uL (4.20-5.00); WBC 10.1 thou/uL (4.0-11.0)
[2020-06-16 06:03] LABS: CREATININE 0.5 mg/dL (0.6-1.0); POTASSIUM 3.6 mmol/L (3.5-5.1)
[2020-06-16 06:09] LABS: HEMATOCRIT 15.7 % (37.0-47.0); HEMOGLOBIN 6.3 gm/dL (12.0-15.0)
[2020-06-16 07:46] VITALS: BP 113/63
[2020-06-16 08:05] LABS: ALBUMIN 3.1 g/dL (3.4-5.0); DIRECT BILIRUBIN 0.6 mg/dL (<0.1-0.2); TOTAL BILIRUBIN 2.9 mg/dL (0.2-1.0); TOTAL PROTEIN 5.9 g/dL (6.4-8.2)
[2020-06-16 09:36] LABS: ABSOLUTE RETIC COUNT 0.2253 10^6/uL; OBSERVED RETIC COUNT 11.13 % (0.6-2.6)
--- NOTE | 2020-06-16 14:20 | NUR ---
ASSUMED PT CARE THIS AM. PT VSS, A&OX4. PATIENT COMPLAINS OF PAIN IN BLE, GIVING PAIN MEDS PER EMAR. IV APTENT, FLUIDS INFUSING. PATIENT REPORTED NAUSEA THIS AM, GAVE ZOFRAN PER EMAR. PATIENT REMAINS CONTINENT, AMBULATORY AROUND ROOM. CALL LIGHT WITHIN REACH. PATIENT ON 2 LITERS OXYGEN VIA NC.
[2020-06-16 15:32] VITALS: BP 103/61
--- NOTE | 2020-06-16 16:04 | NUR ---
CARE TEAM INDICATED THAT PT WILL LIKELY BE HERE MEDICALLY STABLE TO DC HOME IN A DAY OR TWO. CM FOLLOWING REGARDING DC PLANNING.
[2020-06-16] MEDS ORDERED: CEPHALEXIN500 MG PO (17:20)
[2020-06-16 17:25] VITALS: BP 103/61
== END 2020-06-16 18:20 | disposition home or self-care (01) | DRG 871 ==
LOC: ER 19:09 → 4W 21:33 → EROBS 21:33 → 4W 22:41
PROVIDERS: Internal Medicine Hematology & Oncology; Nurse Practitioner; ADMIT Hospitalist; ATTEND Hospitalist
DX: A41.9 Sepsis, unspecified organism (principal); D57.00 Hb-SS disease with crisis, unspecified; N39.0 Urinary tract infection, site not specified; D64.9 Anemia, unspecified; Z79.899 Other long term (current) drug therapy; Z88.8 Allergy status to other drugs, medicaments and biological substances; Z88.5 Allergy status to narcotic agent
CPT/HCPCS: 10040

== ENCOUNTER 2020-07-02 08:36 | Emergency (ER) | payer OTHER ==
[~2020-07-02] VITALS: Ht 160 cm; Wt 66.7 kg
[~2020-07-02 08:36] MED LIST changes: +CEPHALEXIN500 MG PO
[2020-07-02 09:27] LABS: ABSOLUTE RETIC COUNT 0.1359 10^6/uL; ANION GAP 16 mmol/L (7-16); BUN 9 mg/dL (7-18); CALCIUM 9.5 mg/dL (8.5-10.1); CHLORIDE 103 mmol/L (98-107); CO2 22 mmol/L (21-32); CREATININE 0.6 mg/dL (0.6-1.0); GLUCOSE 124 mg/dL (74-106); HEMATOCRIT 28.2 % (37.0-47.0); HEMOGLOBIN 9.5 gm/dL (12.0-15.0); MCH 30.2 pg (26.0-34.0); MCHC 33.8 g/dL (28.0-37.0); MCV 89.4 fL (80.0-100.0); OBSERVED RETIC COUNT 4.3 % (0.6-2.6); POTASSIUM 3.5 mmol/L (3.5-5.1); RBC 3.16 mil/uL (4.20-5.00); RDW 16.6 % (10.5-14.5); SODIUM 141 mmol/L (136-145); WBC 6.9 thou/uL (4.0-11.0)
[2020-07-02 09:37] LABS: ALBUMIN 4.6 g/dL (3.4-5.0); SGOT 27 U/L (15-37); SGPT 18 U/L (30-65); TOTAL BILIRUBIN 2.9 mg/dL (0.2-1.0); TOTAL PROTEIN 7.9 g/dL (6.4-8.2); TROPONIN-I <0.06 ng/mL (<0.06)
[2020-07-02 11:24] LABS: URINE BILIRUBIN NEGATIVE (Negative); URINE BLOOD NEGATIVE (Negative); URINE CLARITY CLEAR; URINE COLOR YELLOW; URINE GLUCOSE-RANDOM* NEGATIVE (Negative); URINE KETONES 1+ (Negative); URINE LEUKOCYTES-REFLEX NEGATIVE (Negative); URINE NITRITE-REFLEX NEGATIVE (Negative); URINE PROTEIN (DIPSTICK) NEGATIVE (Negative); URINE UROBILINOGEN 0.2 E.U./dl (0.2-1.0)
[2020-07-02 12:17] VITALS: BP 110/54
--- NOTE | 2020-07-02 12:26 | EKG ---
[place] [address] [facility] [place] [address] ELECTROCARDIOGRAM REPORT Name: RULA TAVAREZ Room #: [facility]#: [id number] Admission: 07/02/20 Attend Phys: Discharge: Date of : [birth year] Report #: [id number] [facility] ED Test Date: 2020-07-02 Test Time: 08:41:21 Pat Name: RULA TAVAREZ Department: Room: Gender: F Molder Bench: ANISH : 1995 Requested By: Antionette Maher Order Number: [id number] MD: Diego Griffiths Measurements Intervals [place] Rate: 56 P: 28 [place]: 189 QRS: 36 QRSD: 92 T: 5 QT: 410 QTc: 396 Interpretive Statements Sinus rhythm Nonspecific T abnormalities, anterior leads Compared to ECG 03/23/2020 02:20:52 T-wave abnormality now present Electronically Signed On 07-02-2020 12:26:01 CDT by Diego Griffiths [email or web address] <ELECTRONICALLY SIGNED> By: Diego Griffiths MD, [facility] 07/02/20 1226 0841 08 Diego Griffiths MD, FACC /EPI
== END 2020-07-02 12:17 | disposition home or self-care (01) ==
LOC: ER 08:36
PROVIDERS: Student in an Organized Health Care Education/Training Program
DX: D57.00 Hb-SS disease with crisis, unspecified (principal); R07.89 Other chest pain; R06.02 Shortness of breath; Z79.2 Long term (current) use of antibiotics; Z79.899 Other long term (current) drug therapy; Z88.6 Allergy status to analgesic agent; Z88.5 Allergy status to narcotic agent

== ENCOUNTER 2020-07-06 04:01 | Emergency (ER) | payer OTHER ==
[~2020-07-06] VITALS: Ht 160 cm; Wt 62.1 kg
[2020-07-06 04:24] LABS: URINE BILIRUBIN NEGATIVE (Negative); URINE BLOOD NEGATIVE (Negative); URINE CLARITY CLEAR; URINE COLOR YELLOW; URINE GLUCOSE-RANDOM* NEGATIVE (Negative); URINE KETONES NEGATIVE (Negative); URINE LEUKOCYTES-REFLEX TRACE (Negative); URINE NITRITE-REFLEX NEGATIVE (Negative); URINE PROTEIN (DIPSTICK) NEGATIVE (Negative); URINE SPECIFIC GRAVITY 1.015 (1.005-1.035)
[2020-07-06 04:46] LABS: ABSOLUTE NEUTROPHILS 4.6 thou/uL (1.4-8.2); BASOPHILS 1.1 % (0.0-2.0); EOSINOPHILS 1.6 % (0.0-3.0); HEMATOCRIT 27.4 % (37.0-47.0); HEMOGLOBIN 9.9 gm/dL (12.0-15.0); MCH 31.9 pg (26.0-34.0); MCHC 36.2 g/dL (28.0-37.0); MCV 88.1 fL (80.0-100.0); PLATELET COUNT 649 thou/uL (150-400); POLYS 52.3 % (36.0-66.0); RBC 3.11 mil/uL (4.20-5.00); RDW 17.4 % (10.5-14.5); WBC 8.7 thou/uL (4.0-11.0)
[2020-07-06 04:54] LABS: ANION GAP 15 mmol/L (7-16); BUN 7 mg/dL (7-18); CHLORIDE 103 mmol/L (98-107); CO2 23 mmol/L (21-32); CREATININE 0.6 mg/dL (0.6-1.0); GLUCOSE 93 mg/dL (74-106); POTASSIUM 3.7 mmol/L (3.5-5.1); SODIUM 141 mmol/L (136-145)
[2020-07-06 04:59] LABS: ABSOLUTE RETIC COUNT 0.1573 10^6/uL; OBSERVED RETIC COUNT 5.18 % (0.6-2.6)
[2020-07-06 05:04] LABS: ALBUMIN 4.6 g/dL (3.4-5.0); LIPASE 72 U/L (73-393); SGOT 26 U/L (15-37); SGPT 17 U/L (30-65); TOTAL BILIRUBIN 2.8 mg/dL (0.2-1.0); TOTAL PROTEIN 7.9 g/dL (6.4-8.2); TROPONIN-I <0.06 ng/mL (<0.06)
[2020-07-06 05:26] LABS: ANISOCYTOSIS 1+
[2020-07-06 06:01] VITALS: BP 123/65
--- NOTE | 2020-07-06 12:10 | EKG ---
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1995 Requested By: Chetan Burden Order Number: [id number] MD: Kt Hernandez Measurements Intervals [place] Rate: 81 P: 69 IA: 202 QRS: 28 QRSD: 80 T: 55 QT: 375 QTc: 436 Interpretive Statements Sinus rhythm Borderline prolonged IA interval LVH by voltage Compared to ECG 07/02/2020 08:41:21 Left ventricular hypertrophy now present T-wave abnormality no longer present Electronically Signed On 07-06-2020 12:10:15 CDT by Kt Hernandez [email or web address] <ELECTRONICALLY SIGNED> By: Kt Hernandez MD 07/06/20 1210 0423 2 Kt Hernandez MD /SHAREE
== END 2020-07-06 06:01 | disposition home or self-care (01) ==
LOC: ER 04:01
PROVIDERS: Emergency Medicine
DX: D57.00 Hb-SS disease with crisis, unspecified (principal); R07.89 Other chest pain; M79.652 Pain in left thigh; Z79.899 Other long term (current) drug therapy; Z88.6 Allergy status to analgesic agent; Z88.5 Allergy status to narcotic agent

== ENCOUNTER 2020-07-26 02:05 | Emergency (ER) | payer OTHER ==
[~2020-07-26] VITALS: Ht 152.4 cm; Wt 62.1 kg
[2020-07-26 08:00] VITALS: BP 119/65
== END 2020-07-26 08:00 | disposition home or self-care (01) ==
LOC: ER 02:05
DX: D57.818 Other sickle-cell disorders with crisis with other specified complication (principal); Z88.6 Allergy status to analgesic agent; Z88.5 Allergy status to narcotic agent; Z79.899 Other long term (current) drug therapy

== ENCOUNTER 2020-08-02 21:30 | Emergency (ER) | payer OTHER ==
[~2020-08-02] VITALS: Ht 160 cm; Wt 62.1 kg
[2020-08-02 23:59] VITALS: BP 122/73
--- NOTE | 2020-08-03 09:47 | EKG ---
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 08/03/20 0946 2135 2135 Diego Griffiths MD, FACC /EPI
== END 2020-08-03 | disposition home or self-care (01) ==
LOC: ER 21:30
DX: D57.00 Hb-SS disease with crisis, unspecified (principal); Z88.6 Allergy status to analgesic agent

== ENCOUNTER 2020-08-11 00:35 | Emergency (ER) | payer OTHER ==
[~2020-08-11] VITALS: Ht 160 cm; Wt 66.7 kg
[2020-08-11 04:09] VITALS: BP 104/64
== END 2020-08-11 04:11 | disposition home or self-care (01) ==
LOC: ER 00:35
DX: D57.00 Hb-SS disease with crisis, unspecified (principal); J02.9 Acute pharyngitis, unspecified; Z79.899 Other long term (current) drug therapy; Z88.6 Allergy status to analgesic agent; Z88.5 Allergy status to narcotic agent

== ENCOUNTER 2020-08-17 03:43 | Emergency (ER) | payer OTHER ==
[~2020-08-17] VITALS: Ht 160 cm; Wt 66.7 kg
[2020-08-17 03:49] VITALS: BP 125/70
[2020-08-17 04:21] LABS: ABSOLUTE RETIC COUNT 0.225 10^6/uL; OBSERVED RETIC COUNT 8.79 % (0.6-2.6)
[2020-08-17 04:29] LABS: URINE BILIRUBIN NEGATIVE (Negative); URINE BLOOD TRACE (Negative); URINE CLARITY CLEAR; URINE COLOR YELLOW; URINE GLUCOSE-RANDOM* NEGATIVE (Negative); URINE KETONES NEGATIVE (Negative); URINE LEUKOCYTES-REFLEX TRACE (Negative); URINE NITRITE-REFLEX NEGATIVE (Negative); URINE PROTEIN (DIPSTICK) NEGATIVE (Negative)
== END 2020-08-17 04:31 | disposition left against medical advice (07) ==
LOC: ER 03:43
PROVIDERS: Emergency Medicine
DX: M54.9 Dorsalgia, unspecified (principal); D57.1 Sickle-cell disease without crisis; Z88.5 Allergy status to narcotic agent; Z88.0 Allergy status to penicillin; Z88.6 Allergy status to analgesic agent

== ENCOUNTER 2020-08-27 02:04 | Emergency (ER) | payer OTHER ==
[~2020-08-27] VITALS: Ht 160 cm; Wt 66.7 kg
[2020-08-27 02:07] VITALS: BP 127/76
[2020-08-27 03:52] LABS: URINE BILIRUBIN NEGATIVE (Negative); URINE BLOOD 2+ (Negative); URINE CLARITY CLEAR; URINE COLOR YELLOW; URINE GLUCOSE-RANDOM* NEGATIVE (Negative); URINE KETONES NEGATIVE (Negative); URINE NITRITE-REFLEX NEGATIVE (Negative); URINE PROTEIN (DIPSTICK) NEGATIVE (Negative)
[2020-08-27 03:53] LABS: URINE LEUKOCYTES-REFLEX 1+ (Negative)
[2020-08-27 03:59] LABS: SQUAMOUS 0-3 Few /LPF (0-3); URINE RBC 1-2 Rare /HPF (NONE SEEN); WBC CLUMPS Few (None Seen)
[2020-08-27 04:00] LABS: CASTS None Seen /LPF (None Seen); CRYSTALS None Seen /LPF (None Seen); MUCUS 0-3 Light strn/LPF (None Seen)
[2020-08-27] MEDS ORDERED: BACTRIM DS TAB1 EACH PO (04:19)
== END 2020-08-27 04:28 | disposition home or self-care (01) ==
LOC: ER 02:04
PROVIDERS: Emergency Medicine
DX: N39.0 Urinary tract infection, site not specified (principal); Z79.899 Other long term (current) drug therapy; Z88.6 Allergy status to analgesic agent

== ENCOUNTER 2020-09-21 23:28 | Emergency (ER) | payer OTHER ==
[~2020-09-21] VITALS: Ht 160 cm; Wt 66.7 kg
[~2020-09-21 23:28] MED LIST changes: +BACTRIM DS TAB1 EACH PO
[2020-09-22] MEDS ORDERED: AZITHROMYCIN 2250 MG PO (01:05)
[2020-09-22 01:49] VITALS: BP 116/59
== END 2020-09-22 01:45 | disposition home or self-care (01) ==
LOC: ER 23:28
PROVIDERS: Emergency Medicine
DX: U07.1 COVID-19 (principal); R05 Cough; Z79.2 Long term (current) use of antibiotics; Z79.899 Other long term (current) drug therapy; Z88.1 Allergy status to other antibiotic agents; Z88.6 Allergy status to analgesic agent

== ENCOUNTER 2020-10-02 02:21 | Emergency (ER) | payer OTHER ==
[~2020-10-02] VITALS: Ht 160 cm; Wt 66.7 kg
[~2020-10-02 02:21] MED LIST changes: +AZITHROMYCIN 2250 MG PO
[2020-10-02 04:39] VITALS: BP 116/84
== END 2020-10-02 04:40 | disposition home or self-care (01) ==
LOC: ER 02:21
DX: U07.1 COVID-19 (principal); D57.00 Hb-SS disease with crisis, unspecified; M79.652 Pain in left thigh; M79.651 Pain in right thigh; Z79.899 Other long term (current) drug therapy; Z88.6 Allergy status to analgesic agent; Z88.5 Allergy status to narcotic agent

== ENCOUNTER 2021-03-25 02:57 | Emergency (ER) | payer OTHER ==
[~2021-03-25] VITALS: Ht 160 cm; Wt 65.8 kg
[2021-03-25 04:37] VITALS: BP 136/79
== END 2021-03-25 04:37 | disposition home or self-care (01) ==
LOC: ER 02:57
DX: J02.9 Acute pharyngitis, unspecified (principal); Z20.822 Contact with and (suspected) exposure to COVID-19; D57.00 Hb-SS disease with crisis, unspecified; Z79.899 Other long term (current) drug therapy; Z88.6 Allergy status to analgesic agent; Z88.5 Allergy status to narcotic agent; Z88.8 Allergy status to other drugs, medicaments and biological substances

== ENCOUNTER 2021-03-27 02:27 | Emergency (ER) | payer OTHER ==
[~2021-03-27] VITALS: Ht 160 cm; Wt 66.7 kg
[2021-03-27 04:24] VITALS: BP 109/72
== END 2021-03-27 04:25 | disposition home or self-care (01) ==
LOC: ER 02:27
DX: D57.00 Hb-SS disease with crisis, unspecified (principal); Z88.6 Allergy status to analgesic agent; Z88.5 Allergy status to narcotic agent